=== PATIENT | female | born 1960 | race Two or more races ===

== ENCOUNTER 2017-02-23 11:32 | Emergency (ER) | payer MEDICAID ==
[~2017-02-23] VITALS: Ht 160 cm; Wt 68.0 kg
[~2017-02-23 11:32] MED LIST: ALBUPOW26 XX; DICL-37 OR; DIVA500T53; LISI-646 OR; QUET200T30 OR
[2017-02-23 12:08] VITALS: BP 147/101
[2017-02-23] MEDS ORDERED: MECLIZINE HCL 25 MG TAB PO ONE (13:00)
[2017-02-23 14:21] LABS: Basophils # (auto) 0.1 uL; Basophils % (auto) 0.4 % (0.0-2.0); Eosinophils # (auto) 0.2 uL; Eosinophils % (auto) 1.4 % (0.0-7.0); Hematocrit 42.2 % (36.0-46.0); Hemoglobin 14.1 g/dL (12.2-16.2); Lymphocytes # (auto) 1.5 uL; Lymphocytes % (auto) 10.2 % (10.0-50.0); Mean Corpuscular Hemoglobin 30.9 pg (28.0-32.0); Mean Corpuscular Hgb Conc. 33.5 g/dL (32.0-36.0); Mean Corpuscular Volume 92.1 fL (80.0-100.0); Mean Platelet Volume 7.8 fL (6.9-10.8); Monocytes # (auto) 0.6 uL; Monocytes % (auto) 3.8 % (0.0-12.0); Neutrophils # (auto) 12.2 uL; Neutrophils % (auto) 84.2 % (37.0-80.0); Platelet Count (auto) 283 10^3/uL (140-450); Red Cell Distribution Width 13.4 % (11.8-14.3); White Blood Cell 14.5 10^3/uL (4.4-10.8)
[2017-02-23 14:40] LABS: Alkaline Phosphatase 92 U/L (45-117); Anion Gap 6 (5-15); Aspartate Aminotransferase 13 U/L (15-37); BUN/Creatinine Ratio 23.8; Bilirubin, Total 0.2 mg/dL (0.2-1.0); Blood Urea Nitrogen 15 mg/dL (7-18); Calcium 8.9 mg/dL (8.5-10.1); Carbon Dioxide 25 mmol/L (21-32); Chloride 109 mmol/L (98-107); GFR African American 125 mL/min; GFR Non-African American 104 mL/min; Glucose 114 mg/dL (74-106); Magnesium 2.5 mg/dL (1.6-2.6); Potassium 4.6 mmol/L (3.5-5.1); Sodium 140 mmol/L (136-145); Total Protein 7.8 g/dL (6.4-8.2)
== END 2017-02-23 14:59 | disposition left against medical advice (07) ==
LOC: EDSEX 11:32 → EDBD 11:32 → ER 11:32
DX: R42 Dizziness and giddiness (principal); I10 Essential (primary) hypertension; J45.909 Unspecified asthma, uncomplicated; M19.90 Unspecified osteoarthritis, unspecified site; F17.210 Nicotine dependence, cigarettes, uncomplicated; F12.10 Cannabis abuse, uncomplicated; Z98.51 Tubal ligation status; Z90.49 Acquired absence of other specified parts of digestive tract
CPT/HCPCS: 36415; 71010; 80053; 83735; 84484; 85025; 93005; 94761

== ENCOUNTER 2017-10-15 17:07 | Emergency (ER) | payer MEDICAID ==
[~2017-10-15] VITALS: Ht 160 cm; Wt 74.8 kg
[2017-10-15] MEDS ORDERED: IPRATROPIUM BROM 0.5 MG/2.5ML INH SOL NEB ONE (17:30)
[2017-10-15] MEDS ORDERED: ALBUTEROL SULF 2.5 MG/0.5ML(0.5%) NEB SOLN NEB ONE (17:30)
[2017-10-15] MEDS ORDERED: methylPREDNISolone SOD SUCC 125 MG/2 ML VL IM ONE (17:45)
[2017-10-15 18:53] VITALS: BP 172/117
== END 2017-10-15 19:58 | disposition home or self-care (01) ==
LOC: ER 17:19
DX: J45.901 Unspecified asthma with (acute) exacerbation (principal); I10 Essential (primary) hypertension; F31.9 Bipolar disorder, unspecified; M19.90 Unspecified osteoarthritis, unspecified site; F41.9 Anxiety disorder, unspecified; F20.9 Schizophrenia, unspecified; Z90.49 Acquired absence of other specified parts of digestive tract; Z98.51 Tubal ligation status
CPT/HCPCS: 71046; 94640; 96372; 99284; J2930

== ENCOUNTER 2018-07-06 12:12 | Emergency (ER) | payer MEDICAID ==
[~2018-07-06] VITALS: Ht 160 cm; Wt 68.0 kg
[2018-07-06 13:07] LABS: Amphetamine Screen, Urine NEGATIVE (NEGATIVE); Barbiturate Scree,Urine NEGATIVE (NEGATIVE); Benzodiazephine Screen, Urine NEGATIVE (NEGATIVE); Cannabinoid Screen, Urine POSITIVE (NEGATIVE)
[2018-07-06 13:16] LABS: Alcohol, Urine < 3.0 mg/dL (0-5); Cocaine Screen, Urine NEGATIVE (NEGATIVE); Opiate Scree,Urine NEGATIVE (NEGATIVE); Phencyclidine Screen, Urine NEGATIVE (NEGATIVE)
[2018-07-06 14:25] LABS: Basophils # (auto) 0.1 uL; Basophils % (auto) 0.9 % (0.0-2.0); Eosinophils # (auto) 0.3 uL; Eosinophils % (auto) 4.3 % (0.0-7.0); Hematocrit 37.8 % (36.0-46.0); Lymphocytes # (auto) 2.4 uL; Lymphocytes % (auto) 32.8 % (10.0-50.0); Mean Corpuscular Hemoglobin 30.3 pg (28.0-32.0); Mean Corpuscular Hgb Conc. 34.5 g/dL (32.0-36.0); Mean Corpuscular Volume 87.9 fL (80.0-100.0); Monocytes # (auto) 0.5 uL; Monocytes % (auto) 6.3 % (0.0-12.0); Neutrophils # (auto) 4.1 uL; Neutrophils % (auto) 55.7 % (37.0-80.0); Nucleated Red Blood Cells % 0.3 %; Platelet Count (auto) 279 10^3/uL (140-450); Red Cell Distribution Width 13.8 % (11.8-14.3); White Blood Cell 7.4 10^3/uL (4.4-10.8)
[2018-07-06 14:43] LABS: Alanine Aminotransferase 16 U/L (13-56); Albumin 3.8 g/dL (3.4-5.0); Anion Gap 7 (5-15); Aspartate Aminotransferase 11 U/L (15-37); BUN/Creatinine Ratio 32.4; Blood Urea Nitrogen 24 mg/dL (7-18); Calcium 8.9 mg/dL (8.5-10.1); Carbon Dioxide 27 mmol/L (21-32); Chloride 110 mmol/L (98-107); GFR African American 103 mL/min; GFR Non-African American 85 mL/min; Glucose 100 mg/dL (74-106); Potassium 3.2 mmol/L (3.5-5.1); Sodium 144 mmol/L (136-145)
[2018-07-06 14:48] LABS: Alkaline Phosphatase 111 U/L (45-117); Bilirubin, Total 0.3 mg/dL (0.2-1.0); Total Protein 6.6 g/dL (6.4-8.2)
[2018-07-06 15:20] VITALS: BP 142/80
== END 2018-07-06 15:34 | disposition home or self-care (01) ==
LOC: ER 12:12
DX: R20.0 Anesthesia of skin (principal); M19.90 Unspecified osteoarthritis, unspecified site; J44.9 Chronic obstructive pulmonary disease, unspecified; I10 Essential (primary) hypertension; F17.210 Nicotine dependence, cigarettes, uncomplicated; F12.90 Cannabis use, unspecified, uncomplicated; Z79.899 Other long term (current) drug therapy; Z90.49 Acquired absence of other specified parts of digestive tract; Z98.51 Tubal ligation status
CPT/HCPCS: 36415; 70450; 80053; 80307; 84484; 85025; 93005

== ENCOUNTER 2018-12-02 16:06 | Emergency (ER) | payer MEDICAID ==
[~2018-12-02] VITALS: Ht 160 cm; Wt 72.6 kg
[2018-12-02 16:15] VITALS: BP 147/97
[2018-12-02 16:56] LABS: Basophils # (auto) 0.1 uL; Eosinophils # (auto) 0.4 uL; Hemoglobin 10.6 g/dL (12.2-16.2)
[2018-12-02 16:57] LABS: Basophils % (auto) 1.3 % (0.0-2.0); Eosinophils % (auto) 6.1 % (0.0-7.0); Hematocrit 31.7 % (36.0-46.0); Lymphocytes # (auto) 1.3 uL; Lymphocytes % (auto) 21.5 % (10.0-50.0); Mean Corpuscular Hemoglobin 26.5 pg (28.0-32.0); Mean Corpuscular Hgb Conc. 33.6 g/dL (32.0-36.0); Mean Corpuscular Volume 78.9 fL (80.0-100.0); Monocytes # (auto) 0.6 uL; Monocytes % (auto) 9.1 % (0.0-12.0); Neutrophils # (auto) 3.8 uL; Platelet Count (auto) 315 10^3/uL (140-450); Red Blood Cells 4.01 10^6/uL (4.0-5.20); Red Cell Distribution Width 15.7 % (11.8-14.3); White Blood Cell 6.1 10^3/uL (4.4-10.8)
[2018-12-02 17:07] LABS: Albumin 3.7 g/dL (3.4-5.0); Anion Gap 5 (5-15); Blood Urea Nitrogen 13 mg/dL (7-18); Calcium 8.6 mg/dL (8.5-10.1); Carbon Dioxide 23 mmol/L (21-32); Chloride 115 mmol/L (98-107); Glucose 103 mg/dL (74-106); Potassium 3.6 mmol/L (3.5-5.1); Sodium 143 mmol/L (136-145)
[2018-12-02 17:12] LABS: Alanine Aminotransferase 19 U/L (13-56); Alkaline Phosphatase 106 U/L (45-117); Aspartate Aminotransferase 13 U/L (15-37); BUN/Creatinine Ratio 19.7; Bilirubin, Total 0.3 mg/dL (0.2-1.0); GFR African American 118 mL/min; GFR Non-African American 97 mL/min; Total Protein 6.8 g/dL (6.4-8.2)
== END 2018-12-02 23:58 | disposition left against medical advice (07) ==
LOC: ER 16:06
DX: J45.909 Unspecified asthma, uncomplicated (principal); Z53.21 Procedure and treatment not carried out due to patient leaving prior to being seen by health care provider
CPT/HCPCS: 36415; 71046; 80053; 84484; 85025; 87040

== ENCOUNTER 2019-01-30 13:40 | Emergency (ER) | payer MEDICAID ==
[~2019-01-30] VITALS: Ht 160 cm; Wt 75.3 kg
[2019-01-30 14:22] LABS: Eosinophils # (auto) 0.3 uL; Hemoglobin 10.1 g/dL (12.2-16.2)
[2019-01-30 14:24] LABS: Basophils # (auto) 0.1 uL; Basophils % (auto) 0.9 % (0.0-2.0); Eosinophils % (auto) 4.1 % (0.0-7.0); Hematocrit 31.7 % (36.0-46.0); Lymphocytes # (auto) 1.2 uL; Lymphocytes % (auto) 17.8 % (10.0-50.0); Mean Corpuscular Hemoglobin 24.9 pg (28.0-32.0); Mean Corpuscular Hgb Conc. 31.9 g/dL (32.0-36.0); Mean Corpuscular Volume 78.1 fL (80.0-100.0); Monocytes # (auto) 0.5 uL; Monocytes % (auto) 7.7 % (0.0-12.0); Neutrophils # (auto) 4.8 uL; Neutrophils % (auto) 69.5 % (37.0-80.0); Platelet Count (auto) 329 10^3/uL (140-450); Red Blood Cells 4.06 10^6/uL (4.0-5.20); Red Cell Distribution Width 17.1 % (11.8-14.3)
[2019-01-30 15:25] LABS: Alanine Aminotransferase 18 U/L (13-56); Albumin 3.8 g/dL (3.4-5.0); Anion Gap 7 (5-15); Aspartate Aminotransferase 14 U/L (15-37); BUN/Creatinine Ratio 19.4; Blood Urea Nitrogen 14 mg/dL (7-18); Calcium 8.7 mg/dL (8.5-10.1); Carbon Dioxide 27 mmol/L (21-32); Chloride 106 mmol/L (98-107); GFR African American 107 mL/min; GFR Non-African American 88 mL/min; Glucose 89 mg/dL (74-106); Potassium 3.2 mmol/L (3.5-5.1); Sodium 140 mmol/L (136-145)
[2019-01-30 15:28] LABS: Urine WBC None Seen /hpf (0 - 5)
[2019-01-30 15:30] LABS: Alkaline Phosphatase 117 U/L (45-117); Bilirubin, Total 0.3 mg/dL (0.2-1.0); Total Protein 7.3 g/dL (6.4-8.2)
[2019-01-30] MEDS ORDERED: ASPirin 81 mg TAB PO ONE (15:30)
[2019-01-30] MEDS ORDERED: PANTOPRAZOLE 40 MG TAB PO ONE (15:30)
[2019-01-30 15:46] LABS: Magnesium 2.5 mg/dL (1.6-2.6)
[2019-01-30 15:55] LABS: Urine Bacteria NONE SEEN /hpf (None Seen); Urine Blood Negative /uL (Negative); Urine Specific Gravity 1.017 (1.001-1.035)
[2019-01-30 16:05] LABS: INR 0.94 (0.9-1.15); Partial Thromboplastin Time 26.1 sec (23.64-32.05)
[2019-01-30] MEDS ORDERED: IOHEXOL 350 MG/ML 100ML IJ ONE (17:45)
[2019-01-30 19:32] VITALS: BP 126/81
[2019-01-30] MEDS ORDERED: POTASSIUM CHL 20 Meq TABLET PO ONE (20:00)
== END 2019-01-30 20:07 | disposition home or self-care (01) ==
LOC: ER 13:40
DX: K52.9 Noninfective gastroenteritis and colitis, unspecified (principal); R07.89 Other chest pain; K44.9 Diaphragmatic hernia without obstruction or gangrene; D50.9 Iron deficiency anemia, unspecified; J44.9 Chronic obstructive pulmonary disease, unspecified; I10 Essential (primary) hypertension; F17.210 Nicotine dependence, cigarettes, uncomplicated; Z90.49 Acquired absence of other specified parts of digestive tract; Z79.899 Other long term (current) drug therapy
CPT/HCPCS: 36415; 71045; 71275; 74176; 80053; 81001; 82150; 83690; 83735; 83880; 84443; 84484; 85025; 85379; 85610; 85730; 93005; 99284; J7030; Q9967

== ENCOUNTER 2019-06-30 23:47 | Inpatient (IN) | payer MEDICAID ==
[~2019-06-30] VITALS: Ht 162.6 cm; Wt 76.7 kg
[2019-07-01] MEDS ORDERED: HYDROmorphone HCL 2 MG/ML VL IV ONE ×4 (00:15→12:00)
[2019-07-01] MEDS ORDERED: ONDANSETRON HCL 4 MG/2 ML VIAL IV ONE (00:15)
[2019-07-01 01:30] LABS: Basophils # (auto) 0 10 ^3/uL (0-0.2); Hemoglobin 9.8 g/dL (12.2-16.2); Monocytes # (auto) 0.3 10 ^3/uL (0-1.3); Red Blood Cells 4.35 10^6/uL (4.0-5.20)
[2019-07-01 01:31] LABS: Basophils % (auto) 0.5 % (0.0-2.0); Eosinophils # (auto) 0.1 10 ^3/uL (0-0.8); Eosinophils % (auto) 0.6 % (0.0-7.0); Hematocrit 31.5 % (36.0-46.0); Lymphocytes % (auto) 11.3 % (10.0-50.0); Mean Corpuscular Hemoglobin 22.5 pg (28.0-32.0); Mean Corpuscular Hgb Conc. 31.1 g/dL (32.0-36.0); Mean Corpuscular Volume 72.5 fL (80.0-100.0); Monocytes % (auto) 3.7 % (0.0-12.0); Neutrophils # (auto) 7.1 10 ^3/uL (1.6-8.6); Neutrophils % (auto) 83.9 % (37.0-80.0); Platelet Count (auto) 325 10^3/uL (140-450); Red Cell Distribution Width 18.4 % (11.8-14.3); White Blood Cell 8.5 10^3/uL (4.4-10.8)
[2019-07-01 01:43] LABS: INR 0.97 (0.9-1.15); Partial Thromboplastin Time 26.6 sec (23.64-32.05)
[2019-07-01 01:50] LABS: Albumin 3.7 g/dL (3.4-5.0); BUN/Creatinine Ratio 22.1; Calcium 9.1 mg/dL (8.5-10.1)
[2019-07-01 01:53] LABS: Bilirubin, Total 0.2 mg/dL (0.2-1.0); Total Protein 7.2 g/dL (6.4-8.2)
[2019-07-01 02:04] LABS: Potassium 2.7 mmol/L (3.5-5.1)
[2019-07-01] MEDS ORDERED: COCAINE HCL 4% TOP SOL 4ML TOP ONE (02:45)
[2019-07-01] MEDS ORDERED: POTASSIUM CHL 20MEQ/100ML 100 ML IV ONE (03:15)
[2019-07-01] MEDS ORDERED: SODIUM CHLORIDE 0.9% 1,000 ML IV SCH ×2 (06:11→06:45)
[2019-07-01] MEDS ORDERED: MORPHINE SULF INJ 2 MG/ML SYRINGE 1ML IV PRN ×4 (06:15→11:00)
[2019-07-01] MEDS ORDERED: hydrALAZINE HCL 20 MG/ML VL IV PRN (06:15)
[2019-07-01] MEDS ORDERED: ONDANSETRON HCL 4 MG/2 ML VIAL IV PRN ×2 (06:15→12:00)
[2019-07-01] MEDS ORDERED: NITROGLYCERIN 0.4 MG SL TAB SL PRN (06:45)
[2019-07-01] MEDS ORDERED: POTASSIUM CHL 20 Meq TABLET PO PRN (07:30)
--- NOTE | 2019-07-01 07:30 | NUR ---
Respiratory note: Assessed pt for prn medneb tx. HR 68, RR 12, SPO2 98% on 2lpm nasal cannula. Breath sounds clear throughout. Pt denies SOB at this time, laying comfortably in bed, no s/s of respiratory distress noted. Medneb tx not indicated at this time. Pt aware to call for RT if needing a tx.
[2019-07-01 07:40] VITALS: BP 112/72
[2019-07-01 08:49] LABS: Urine Bacteria FEW /hpf (None Seen); Urine Blood Negative /uL (Negative); Urine Hyaline Cast MOD /lpf (0 - 2); Urine Mucus FEW (None Seen); Urine Specific Gravity 1.028 (1.001-1.035); Urine WBC 1 /hpf (0 - 5)
[2019-07-01 08:51] LABS: Basophils # (auto) 0 10 ^3/uL (0-0.2); Eosinophils # (auto) 0.1 10 ^3/uL (0-0.8); Hemoglobin 9.3 g/dL (12.2-16.2); Monocytes # (auto) 0.7 10 ^3/uL (0-1.3)
[2019-07-01 08:54] LABS: Basophils % (auto) 0.5 % (0.0-2.0); Eosinophils % (auto) 1.5 % (0.0-7.0); Hematocrit 29.6 % (36.0-46.0); Lymphocytes # (auto) 1.6 10 ^3/uL (0.4-5.4); Lymphocytes % (auto) 18.4 % (10.0-50.0); Mean Corpuscular Hemoglobin 22.7 pg (28.0-32.0); Mean Corpuscular Hgb Conc. 31.4 g/dL (32.0-36.0); Mean Corpuscular Volume 72.4 fL (80.0-100.0); Monocytes % (auto) 7.8 % (0.0-12.0); Neutrophils # (auto) 6.1 10 ^3/uL (1.6-8.6); Neutrophils % (auto) 71.8 % (37.0-80.0); Platelet Count (auto) 313 10^3/uL (140-450); Red Blood Cells 4.09 10^6/uL (4.0-5.20); Red Cell Distribution Width 18.7 % (11.8-14.3); White Blood Cell 8.5 10^3/uL (4.4-10.8)
[2019-07-01] MEDS: HYDROmorphone HCL 2 MG/ML VL IV PRN ×6 (09:04→21:56)
[2019-07-01 09:12] LABS: Albumin 3.3 g/dL (3.4-5.0); BUN/Creatinine Ratio 26.1; Calcium 8.6 mg/dL (8.5-10.1); Potassium 3.6 mmol/L (3.5-5.1)
[2019-07-01 09:14] LABS: Bilirubin, Total 0.2 mg/dL (0.2-1.0); Total Protein 6.4 g/dL (6.4-8.2)
[2019-07-01] MEDS ORDERED: ceFAZolin 1GM/50ML 50 ML IV ONE (09:51)
[2019-07-01] MEDS ORDERED: PANTOPRAZOLE 40 MG/10 ML VIAL INJ IV SCH (10:00)
[2019-07-01] MEDS ORDERED: GLYCOPYRROLATE 0.2 MG/ML 1ML VIAL IV ONE (10:15)
[2019-07-01] MEDS ORDERED: NEOSTIGMINE 1 MG/ML INJ (10mg/10ML VIAL) IV ONE (10:15)
[2019-07-01] MEDS ORDERED: PHENYLEPHRINE HCL 10 MG/ML VL IV ONE (10:15)
[2019-07-01] MEDS ORDERED: MIDAZOLAM HCL 1MG/1ML-2 ML VIAL ONE (10:22)
[2019-07-01] MEDS ORDERED: SUCCINYLCHOLINE CHLORIDE 20 MG/ML 10ML VIAL IV ONE (10:22)
[2019-07-01] MEDS ORDERED: fentaNYL CITRATE 100 MCG/2 ML VL ONE (10:22)
[2019-07-01] MEDS ORDERED: MEPERIDINE HCL (50 MG/ML) 1 ML VIAL ONE (10:22)
[2019-07-01] MEDS ORDERED: BUPIVACAINE 0.25% INJ 50ML VIAL ONE (10:46)
[2019-07-01] MEDS ORDERED: ETOMIDATE (2MG/ML) 20ML VIAL IV ONE (10:47)
[2019-07-01] MEDS ORDERED: DexAMETHasone SOD PHOS 10MG/1ML VIAL INJ ONE (10:47)
[2019-07-01] MEDS ORDERED: POVIDONE IODINE 10 % TOPICAL OINT 30GM TOP ONE (10:53)
[2019-07-01] MEDS ORDERED: HYDROmorphone HCL 2 MG/ML VL ONE (11:55)
[2019-07-01] MEDS ORDERED: MORPHINE SULFATE 4 MG/ML SYR/VIAL IV PRN (12:00)
[2019-07-01] MEDS ORDERED: ePHEDrine SULFATE 50 MG/ML AMP IV PRN (12:00)
[2019-07-01] MEDS ORDERED: MIDAZOLAM HCL 1MG/1ML-2 ML VIAL IV PRN (12:00)
[2019-07-01] MEDS ORDERED: LABETALOL HCL 5 MG/ML 4ML SYRINGE IV PRN (12:00)
--- NOTE | 2019-07-01 12:50 | NUR ---
Telemetry admit from OR FRANK ADORNO admitted to Telemetry unit after SBAR received. Patient oriented to OMER GOLDBERG RN primary RN, unit, room, bed, and unit policies regarding patient care and visiting hours. Patient now on continuous telemetry monitoring, tele box # 78 and telemetry reading on arrival to unit is SR in 80's. Patient placed on bedside oxygen, weighed by bedscale and encouraged to call if they need something. All questions and concerns addressed, patient verbalized understanding.
[2019-07-01 12:55] VITALS: BP 125/85
--- NOTE | 2019-07-01 15:00 | NUR ---
Pain Patient complains of abdominal pain 10/16. Pain s/p abdominal surgery. Will medicate per MD orders.
[2019-07-01] MEDS: D5W/SOD CHL 0.45%/KCL 20MEQ 1,000 ML IV SCH (15:11)
[2019-07-01 16:58] VITALS: BP 120/80
--- NOTE | 2019-07-01 19:25 | NUR ---
Received report from the Day Shift RN Cher. Initial assessment done.
--- NOTE | 2019-07-01 19:38 | NUR ---
Respiratory note: ASSESSED PT FOR PRN TX PT WAS AWAKE AND ALERT, NO RESP DISTRESS NOTED. HR 98%, RR 18, SPO2 99% ON 2L NC. BS ARE CLEAR, NO INDICATION FOR TX AT THIS TIME. PT KNOWS TO HAVE RT PAGED IF TX IS NEEDED.
--- NOTE | 2019-07-01 20:00 | NUR ---
Received pt. in bed resting, alert, awake, oriented x 4. Pt. @ 2L/NC continuous, breathing regular even and unlabored. Pt. on Tele # 78 @ 100's @ the monitor. Denies chest pain. Pt. has abdominal incision with dressing clean, dry and intact. Pt. is a S/P Exploratory Lap with repair of incarcerated Central Hernia Surgery which was done today by Dr. lA. Pt. medicated for abdominal pain -see Emar for prn Dilaudid. Will medicate pt. if pt. verbalized abdominal pain anytime soon. No verbalization of pain @ this time and is comfortable @ this time. Pt. IV access @ the RAC G # 20 with IVF of D5W 1/2 NS + 20 meq KCL @ 75 ml./hr. continuous. Generally skin is intact except for the presence of abdominal incision. Kept pt. on NPO. Siderails up x 2 @ the head of the bed, bed locked in a low position and call-light within pt.'s reach.
--- NOTE | 2019-07-01 21:56 | NUR ---
Pt. verbalized severe pain @ the surgical site - abdomen about 9/10 scale, hurting and sharp pain as described by the pt. Pt. given Dilaudid 0.25 mg. IVP @ 2156 pm. Provided pt. psychological support. Pt. still on NPO. ST @ the monitor.
[2019-07-01 22:00] VITALS: BP 141/83
--- NOTE | 2019-07-01 22:26 | NUR ---
Pt. fell asleep, calm and quiet. Pt. is pain free @ this time. SR @ the 80's to 90's @ the monitor. Still with 02 @ 2L/NC continuous.
--- NOTE | 2019-07-02 00:30 | NUR ---
Pt. is sleeping and resting quietly.
--- NOTE | 2019-07-02 00:50 | NUR ---
Called RT as pt. requested to help her loosen and mucolysis her phlegm inside and to open lung tubes.
[2019-07-02] MEDS: ALBUTEROL SULF 2.5 MG/0.5ML(0.5%) NEB SOLN NEB PRN ×2 (00:54→15:55)
--- NOTE | 2019-07-02 00:54 | NUR ---
Pt. received Ventolin/Albuterol Inhalation given by the RT Personnel @ the bedside.
[2019-07-02] MEDS: HYDROmorphone HCL 2 MG/ML VL IV PRN ×5 (02:04→20:01)
[2019-07-02] MEDS: ONDANSETRON HCL 4 MG/2 ML VIAL IV PRN ×2 (02:04→20:01)
--- NOTE | 2019-07-02 02:04 | NUR ---
Pt. given Dilaudid 0.25 mg. IV for severe pain @ the abdomen about 10/10 scale, hurting and sharp pain and Zofran 4mg. IV for nausea both given @ 0204 Am.
[2019-07-02] MEDS: D5W/SOD CHL 0.45%/KCL 20MEQ 1,000 ML IV SCH ×3 (02:05→19:50)
--- NOTE | 2019-07-02 02:34 | NUR ---
Pt. denies pain @ this time, pt. expressed that she's pain free @ this time about 0/10 scale.
[2019-07-02 04:55] VITALS: BP 149/78
--- NOTE | 2019-07-02 04:56 | NUR ---
Texted/Sent message to Dr. Valeriano Lomas about pt. present status. Notified Dr. Valeirano kaiser that pt. is having temp. of 102.2 deg. F. @ this time. Pt. needs order for the high temp. Pt. started or given cooling measures while waiting for Doctor Lomas to return call. Awaiting call.
--- NOTE | 2019-07-02 05:00 | NUR ---
Paged/Called Dr. Valeriano Lomas and left message @ the voice mail about pt. present status with a high temp. of 102.2 degrees F. @ this time. Cooling measures started by ns. staff. Awaiting Doctor's return call.
--- NOTE | 2019-07-02 05:45 | NUR ---
Called/paged Dr. Al. awaiting return call.
--- NOTE | 2019-07-02 05:50 | NUR ---
Dr. Al returned call and notified about pt.'s temp. = 102.2 now and pt. did not receive any antibiotic after surgery yesterday morning. Doctor Servando said there's no need for Blood culture order. Dr. Al gave order for Ancef antibiotic and Tylenol 650 mg. po q 6 hrs. prn for fever.
[2019-07-02] MEDS ORDERED: ACETAMINOPHEN 325 MG TAB PO PRN (06:00)
--- NOTE | 2019-07-02 06:25 | NUR ---
Pt. given Dilaudid 0.25 mg. IVP for severe pain @ the surgical site - Abdominal Surgery incision sharp and hurting pain about 8/10 scale. - See Emar.
--- NOTE | 2019-07-02 06:55 | NUR ---
Pt. verbalized that pain is just little now about 2/10 scale s/p 30 mins. pain reliever Dilaudid IV given. Pt. verb. she's more comfortable now than 30 mins. ago.
[2019-07-02] MEDS: ceFAZolin 1GM/50ML 50 ML IV SCH ×3 (06:56→20:00)
--- NOTE | 2019-07-02 06:56 | NUR ---
Ancef 1 GM given IV for antibiotic. See Emar.
--- NOTE | 2019-07-02 07:15 | NUR ---
Opening shift note Assumed care, patient AOx4 no s/s of distress or SOB noted at this moment. Patient denies pain at this time. Patient updated on POC and to call for assistance as needed, patient verbalizes understanding. Bed in low position, locked, side rails x2 up, call light within reach. Will continue care.
[2019-07-02 09:00] VITALS: BP 109/81
--- NOTE | 2019-07-02 11:00 | NUR ---
Respiratory note: PATIENT ASSESSED FOR PRN MED-NEB TX; TX NOT INDICATED AT THIS TIME PATIENT IS IN NO ACUTE RESPIRATORY DISTRESS AND DENIES NEED. PATIENT INSTRUCTED TO CALL FOR RT IF SHE FEELS THE NEED FOR TX AT A LATER TIME. SPO2 96% 2LPM N/C
--- NOTE | 2019-07-02 12:30 | NUR ---
paged Dr. Lomas paged patient requesting diet change from NPO to Clear Liquid. Awaiting call back.
[2019-07-02 12:35] VITALS: BP 141/78
--- NOTE | 2019-07-02 13:00 | NUR ---
Fever Patient running a mild fever of 100.5, cooling measures initiated, patient refuses antiemetic per MD orders, patient states it makes her stomach upset when taking without food. Will continue to monitor.
--- NOTE | 2019-07-02 14:31 | NUR ---
Re; Fever Patient temperature 102.3 F, cooling measures in place. Patient requesting Tylenol. Will medicate and notify MD of temperature changes.
--- NOTE | 2019-07-02 14:51 | NUR ---
page back Dr. Lomas paged back regarding patient requesting diet change, per MD this RN is to page surgeon and request diet change from him. [phone]- Dr Al paged. Awaiting call back.
--- NOTE | 2019-07-02 15:00 | NUR ---
paged back Dr. Al paged back regarding diet. Per MD patient to remain NPO until first bowel movement. Patient has been informed.
--- NOTE | 2019-07-02 15:32 | NUR ---
RE: fever Patient temperature 100.1 Fahrenheit , cooling measures in place. Will continue to monitor.
--- NOTE | 2019-07-02 15:49 | NUR ---
Pain Patient complaining of abdominal pain. Patient s/p abdominal surgery. Patient states pain is constant, sharp, and stabbing at moments, pain rated 9/10. Will medicate per doctors orders.
--- NOTE | 2019-07-02 16:19 | NUR ---
RE: pain patient pain reassessed at 09/15. Patient adjusted in bed for comfort. Ice packs placed in abdominal region to assist with alleviating pain. Will continue to monitor.
[2019-07-02 17:00] VITALS: BP 108/55
--- NOTE | 2019-07-02 17:00 | NUR ---
Anxiety Patient found crying in bed, patient states she is having a hard time with her anxiety. Patient verbalizes that she occasionally gets " really bad anxiety when she is stressed". Per patient she takes anxiety PRN medication at home but is unable to recall name of medication. MD has been paged regarding patient requesting anxiety medication. Awaiting call back.
--- NOTE | 2019-07-02 17:30 | NUR ---
MD page back regarding anxiety New orders received from Dr. Lomas for Ativan 0.5 mg Q12Hr PRN. Patient refusing medication at the moment, patient states anxiety attack has passed and she will request as needed.
--- NOTE | 2019-07-02 19:00 | NUR ---
OPENING NOTE ASSESSMENT PERFORMED, PATIENT IN BED, ABDOMINAL BINDER IN PLACE, DRESSING ON MID ABDOMEN CLEAN AND DRY. PATIENT WAS ABLE TO SIT UP, DANGLE HER FEET AND USE THE BED SIDE COMMODE, SHE WAS INDEPENDENT. PATIENT WAS VERY UNCOMFORTABLE, IN PAIN AND VOMITING. HER MOUTH IS VERY DRY.
--- NOTE | 2019-07-02 20:23 | NUR ---
MEDICATED FOR NAUSEA, PAIN AND GIVEN MOUTH WASH TO ALLEVIATE HALITOSIS AND AND FEELING OF DRY MOUTH.
[2019-07-02 22:19] VITALS: BP 117/95
[2019-07-03] MEDS: HYDROmorphone HCL 2 MG/ML VL IV PRN ×4 (01:05→22:54)
[2019-07-03] MEDS: ONDANSETRON HCL 4 MG/2 ML VIAL IV PRN ×2 (01:05→19:14)
--- NOTE | 2019-07-03 01:55 | NUR ---
Patient was up to the bedside commode. medicated for nausea and pain.
[2019-07-03 05:00] VITALS: BP 140/84
[2019-07-03] MEDS: ceFAZolin 1GM/50ML 50 ML IV SCH ×3 (05:02→19:13)
[2019-07-03] MEDS: ALBUTEROL SULF 2.5 MG/0.5ML(0.5%) NEB SOLN NEB PRN ×3 (06:59→18:43)
--- NOTE | 2019-07-03 06:59 | NUR ---
Respiratory note: ARRIVED IN PT ROOM FOR A PRN MED NEB CHECK. PT STATES SHE WOULD LIKE A TX BUT IS SITTING ON THE COMMODE AND WANTS ME TO COME BACK AFTER SHE IS DONE. I INSTRUCTED PT TO HIT THE CALL BUTTON WHEN SHE IS DONE.
--- NOTE | 2019-07-03 06:59 | NUR ---
PATIENT SITTING UP. UNLABORED BREATHING. WALKING INDEPENDENTLY. WILL CONTINUE TO MONITOR
[2019-07-03 09:00] VITALS: BP 153/95
[2019-07-03 13:00] VITALS: BP 124/69
--- NOTE | 2019-07-03 13:11 | NUR ---
Diet change Dr. Lomas informed patient had a bowel movement. New orders to upgrade diet to Clear Liquid obtained. Will implement order and monitor patient for diet tolerance.
[2019-07-03] MEDS: LORazepam 2MG/ML-1ML VIAL IV PRN ×2 (13:24→22:54)
[2019-07-03] MEDS: D5W/SOD CHL 0.45%/KCL 20MEQ 1,000 ML IV SCH (15:19)
[2019-07-03 17:00] VITALS: BP 119/76
--- NOTE | 2019-07-03 18:43 | NUR ---
Respiratory note: AT BEDSIDE IN (A) BED PT CALLED ME TO HER BED REQUESTING MED NEB TX. PT STATES SHE IS WHEEZY. BS ARE FINE WHEEZE MORE SO HEARD ON MA[place], DIMINISHED T/O. NO ADVERSE REACTION NOTED WILL ADMINISTRATION OF MED NEB TX. RT NAME AND PAGER ASSIGNMENT WRITTEN ON PTS ROOM BOARD. WILL CONTINUE TO MONITOR.
--- NOTE | 2019-07-03 19:00 | NUR ---
OPENING NOTE PATIENT AWAKE, REPORT RECEIVED FROM RN. PATIENT HAD A BOWEL MOVEMENT TODAY. DIET WAS ADVANCED TO CLEAR LIQUIDS, PATIENT HAS BEEN TOLERATING IT WELL. PATIENT IS WALKING MORE OFTEN.
--- NOTE | 2019-07-03 19:33 | NUR ---
MEDICATED FOR PAIN AND NAUSEA.
[2019-07-03 22:00] VITALS: BP 109/57
[2019-07-04] VITALS (7 sets, daily range): BP systolic 108–138; BP diastolic 61–80
--- NOTE | 2019-07-04 00:11 | NUR ---
PATIENT RESTING, NO SIGNS OF DISTRESS
--- NOTE | 2019-07-04 00:13 | NUR ---
IV insertion IV access obtained, via clean sterile technique by inserting gauge 20 catheter at right forearm after 1 attempt(s). IV secured properly. No trauma to site. Patient tolerated procedure well. IV removal IV DC'd with sterile technique, catheter fully intact. Pressure dressing applied to left a/c. Patient tolerated procedure well. Discharged with aftercare instructions per
--- NOTE | 2019-07-04 01:46 | NUR ---
PATIENT WOKE UP VERY ANGRY, ASKING IF SHE COULD LEAVE THE HOSPITAL BECAUSE SHE DID NOT HAVE ANYTHING TO SLEEP. PATIENT CALLED DAUGHTER AND SAID " THEY SAID I COULD LEAVE. I EXPLAINED TO THE DAUGHTER THAT THE PATIENT WAS TRYING TO LEAVE AMA. PATIENT WAS MEDICATED FOR PAIN. PATIENT NOW IS RESTING.
[2019-07-04] MEDS: D5W/SOD CHL 0.45%/KCL 20MEQ 1,000 ML IV SCH ×3 (05:37→21:05)
[2019-07-04] MEDS: ceFAZolin 1GM/50ML 50 ML IV SCH ×3 (05:37→21:05)
--- NOTE | 2019-07-04 07:22 | NUR ---
Opening Shift Note Assumed care of patient, awake and alert. No S/S of distress/SOB. Instructed on POC and to call for assist PRN, will continue to monitor for changes Q1hr and PRN. Bed is set in lowest locked position with side rails up x 2 for safety and call light is within reach.
[2019-07-04] MEDS: HYDROmorphone HCL 2 MG/ML VL IV PRN ×3 (08:44→19:11)
--- NOTE | 2019-07-04 11:05 | NUR ---
Respiratory note: PT ASSESSED FOR PRN MEDNEB TX AT THIS TIME. NO DISTRESS NOTED. MEDNEB NOT INDICATED AT THIS TIME. SPO2 97% ON 2L NC HR 88 RR 16 B/S CLEAR-DIMINISHED. PT AWARE TO HAVE RT PAGED IF THEY BECOME SOB.
[2019-07-04] MEDS: ALBUTEROL SULF 2.5 MG/0.5ML(0.5%) NEB SOLN NEB PRN (18:25)
--- NOTE | 2019-07-04 19:00 | NUR ---
OPENING NOTE ASSUMED CARE, PATIENT AWAKE, ALERT AND ORIENTED. NO SIGNS OF DISTRESS. INSTRUCTED PATIENT ON POC, AND TO CALL FOR HELP NEEDED. CALL LIGHT WITH IN REACH, BED ON LOWEST POSITION. WILL CONTINUE TO MONITOR.
--- NOTE | 2019-07-04 21:00 | NUR ---
MEDICATED PATIENT FOR ANXIETY, EXPLAINED TO PATIENT MEDICATION SCHEDULE.
[2019-07-04] MEDS: LORazepam 2MG/ML-1ML VIAL IV PRN (21:05)
[2019-07-05] MEDS: ALBUTEROL SULF 2.5 MG/0.5ML(0.5%) NEB SOLN NEB PRN (00:17)
[2019-07-05] MEDS: HYDROmorphone HCL 2 MG/ML VL IV PRN ×2 (01:23→10:07)
[2019-07-05 05:00] VITALS: BP 114/72
[2019-07-05] MEDS: ceFAZolin 1GM/50ML 50 ML IV SCH (05:30)
[2019-07-05 08:52] VITALS: BP 132/18
--- NOTE | 2019-07-05 10:20 | NUR ---
Left message with for surgical clearance.
--- NOTE | 2019-07-05 10:25 | NUR ---
Dr. Viera called back and cleared for discharge. Stated to remove the dressing, the patient may shower and to have patient follow up with him in two weeks.
[2019-07-05 12:58] VITALS: BP 125/72
--- NOTE | 2019-07-05 13:15 | NUR ---
Discharge instructions given as ordered. Encourage to follow up with Primary provider as instructed along with Dr. Viera to remove the kaitlynn and stitches. All questions and concerns addressed. Patient verbalized understanding. Medication reconciliation form completed and copy given to patient. IV removed with catheter intact, pressure dressing applied. Telemetry unit returned to ICU. Patient taken to vehicle via wheelchair with all personal belongings, accompanied by staff and son. No distress noted at time of departure.
== END 2019-07-05 13:14 | disposition home or self-care (01) | DRG 227 ==
LOC: EDBD 23:47 → ER 23:49 → TELE 23:50 → TELE-WESTW 07-01 12:53
PROVIDERS: ADMIT Internal Medicine; ATTEND Internal Medicine
PROC: 0DBU0ZZ Excision of Omentum, Open Approach (ICD-10-PCS; 2019-07-01)
PROC: 0WQF0ZZ Repair Abdominal Wall, Open Approach (ICD-10-PCS; principal; 2019-07-01 10:15)
DX: K43.6 Other and unspecified ventral hernia with obstruction, without gangrene (principal); D64.9 Anemia, unspecified; K57.90 Diverticulosis of intestine, part unspecified, without perforation or abscess without bleeding; F41.9 Anxiety disorder, unspecified; I10 Essential (primary) hypertension; F17.210 Nicotine dependence, cigarettes, uncomplicated; J44.9 Chronic obstructive pulmonary disease, unspecified; Z80.6 Family history of leukemia; Z79.899 Other long term (current) drug therapy; Z79.51 Long term (current) use of inhaled steroids; Z90.49 Acquired absence of other specified parts of digestive tract; Z98.51 Tubal ligation status; Z83.3 Family history of diabetes mellitus; Z82.49 Family history of ischemic heart disease and other diseases of the circulatory system
CPT/HCPCS: 36415; 71045; 74176; 80053; 81001; 82150; 83690; 85025; 85610; 85730; 88302; 94640; 96374; 96375; 96376; G0378; J0330; J0690; J1100; J2250; J2405; J3480; J3490

== ENCOUNTER 2020-07-26 12:47 | Inpatient (IN) | payer MEDICAID ==
[~2020-07-26] VITALS: Ht 160 cm; Wt 81.8 kg
[~2020-07-26 12:47] MED LIST changes: +DIVA500T2; -DIVA500T53; -LISI-646 OR; +LISI20TA28 OR
[2020-07-26] MEDS ORDERED: IPRATROPIUM BROM 0.5 MG/2.5ML INH SOL HHN ONE (13:00)
[2020-07-26] MEDS ORDERED: ALBUTEROL SULF 2.5 MG/0.5ML(0.5%) NEB SOLN HHN ONE (13:00)
[2020-07-26] MEDS ORDERED: methylPREDNISolone SOD SUCC 125 MG/2 ML VL IV ONE (13:00)
[2020-07-26 13:40] LABS: Basophils # (auto) 0.1 10 ^3/uL (0-0.2); Hemoglobin 10.3 g/dL (12.2-16.2); Neutrophils # (auto) 6.4 10 ^3/uL (1.6-8.6)
[2020-07-26 13:41] LABS: Basophils % (auto) 1.2 % (0.0-2.0); Eosinophils # (auto) 1.4 10 ^3/uL (0-0.8); Eosinophils % (auto) 13.2 % (0.0-7.0); Hematocrit 32.1 % (36.0-46.0); Lymphocytes # (auto) 1.9 10 ^3/uL (0.4-5.4); Lymphocytes % (auto) 18.1 % (10.0-50.0); Mean Corpuscular Hemoglobin 23.3 pg (28.0-32.0); Mean Corpuscular Hgb Conc. 32.1 g/dL (32.0-36.0); Mean Corpuscular Volume 72.4 fL (80.0-100.0); Monocytes # (auto) 0.6 10 ^3/uL (0-1.3); Neutrophils % (auto) 61.5 % (37.0-80.0); Platelet Count (auto) 391 10^3/uL (140-450); Red Blood Cells 4.44 10^6/uL (4.0-5.20); Red Cell Distribution Width 17.9 % (11.8-14.3); White Blood Cell 10.5 10^3/uL (4.4-10.8)
[2020-07-26 14:09] LABS: Chloride 115 mmol/L (98-107); Potassium 3.9 mmol/L (3.5-5.1); Sodium 143 mmol/L (136-145)
[2020-07-26 14:18] LABS: Alanine Aminotransferase 20 U/L (13-56); Albumin 4.2 g/dL (3.4-5.0); Alkaline Phosphatase 139 U/L (45-117); Anion Gap 9 (5-15); Aspartate Aminotransferase 13 U/L (15-37); BUN/Creatinine Ratio 21.3; Bilirubin, Total 0.4 mg/dL (0.2-1.0); Blood Urea Nitrogen 16 mg/dL (7-18); CRP High Sensitivity 0.42 mg/dL (< 0.3); Carbon Dioxide 19 mmol/L (21-32); GFR African American 101 mL/min; GFR Non-African American 83 mL/min; Glucose 103 mg/dL (74-106); Total Protein 7.6 g/dL (6.4-8.2)
[2020-07-26] MEDS ORDERED: ACETAMINOPHEN 325 MG TAB PO PRN (15:00)
[2020-07-26] MEDS ORDERED: NITROGLYCERIN 0.4 MG SL TAB SL PRN (15:00)
[2020-07-26] MEDS ORDERED: MORPHINE SULF INJ 2 MG/ML SYRINGE 1ML IV PRN (15:00)
[2020-07-26] MEDS: levoFLOXacin 500MG 100 ML IV SCH (15:18)
[2020-07-26] MEDS: MORPHINE SULFATE 4 MG/ML SYR/VIAL IV PRN ×2 (17:20→21:40)
[2020-07-26 19:45] VITALS: BP 167/86
[2020-07-26] MEDS ORDERED: LISI-287 PO (20:33)
[2020-07-26] MEDS ORDERED: MAGN241.6 PO (20:33)
[2020-07-26] MEDS ORDERED: PANT40TA57 PO (20:33)
[2020-07-26] MEDS ORDERED: BACL10TA PO (20:33)
[2020-07-26] MEDS ORDERED: ALBU108A5 INH (20:33)
[2020-07-26] MEDS ORDERED: NAP500T PO (20:33)
[2020-07-26] MEDS ORDERED: CLON1TAB10 PO (20:33)
[2020-07-26] MEDS ORDERED: LISI-707 PO (20:38)
[2020-07-26] MEDS ORDERED: BACLOFEN 10 MG TAB PO PRN (20:45)
[2020-07-26] MEDS: methylPREDNISolone SOD SUCC 40 MG/ML VL IV SCH (21:39)
[2020-07-26] MEDS: clonazePAM 0.5 MG TAB PO PRN (21:40)
[2020-07-26 22:00] VITALS: BP 167/86
[2020-07-27] VITALS (7 sets, daily range): BP systolic 119–170; BP diastolic 74–89
[2020-07-27] MEDS: TEMAZEPAM 15 MG CAP PO PRN (00:21)
[2020-07-27] MEDS: MORPHINE SULFATE 4 MG/ML SYR/VIAL IV PRN ×2 (04:31→20:17)
[2020-07-27] MEDS: methylPREDNISolone SOD SUCC 40 MG/ML VL IV SCH ×3 (06:12→22:03)
[2020-07-27 06:49] LABS: Basophils # (auto) 0 10 ^3/uL (0-0.2); Eosinophils # (auto) 0 10 ^3/uL (0-0.8); Eosinophils % (auto) 0.1 % (0.0-7.0); Lymphocytes # (auto) 0.9 10 ^3/uL (0.4-5.4); Lymphocytes % (auto) 7.3 % (10.0-50.0); Mean Corpuscular Hemoglobin 23.3 pg (28.0-32.0); Mean Corpuscular Hgb Conc. 30.6 g/dL (32.0-36.0); Monocytes # (auto) 0.2 10 ^3/uL (0-1.3); Neutrophils % (auto) 90.8 % (37.0-80.0)
[2020-07-27 06:52] LABS: Basophils % (auto) 0.3 % (0.0-2.0); Hematocrit 30.4 % (36.0-46.0); Hemoglobin 9.3 g/dL (12.2-16.2); Mean Corpuscular Volume 75.9 fL (80.0-100.0); Monocytes % (auto) 1.5 % (0.0-12.0); Neutrophils # (auto) 11.3 10 ^3/uL (1.6-8.6); Platelet Count (auto) 297 10^3/uL (140-450); Red Cell Distribution Width 17.5 % (11.8-14.3); White Blood Cell 12.5 10^3/uL (4.4-10.8)
[2020-07-27 07:04] LABS: Albumin 3.5 g/dL (3.4-5.0)
[2020-07-27 07:07] LABS: BUN/Creatinine Ratio 28.3; Bilirubin, Total 0.4 mg/dL (0.2-1.0); Total Protein 7.1 g/dL (6.4-8.2)
[2020-07-27 07:12] LABS: Potassium 4.7 mmol/L (3.5-5.1)
[2020-07-27] MEDS: HCTZ 25 MG TAB PO SCH (09:23)
[2020-07-27] MEDS: LISINOPRIL 20 MG TAB PO SCH (09:24)
[2020-07-27] MEDS: levoFLOXacin 500MG 100 ML IV SCH (09:25)
[2020-07-27] MEDS: ENOXAPARIN SOD 40 MG/0.4 ML SYRINGE SC SCH (09:25)
[2020-07-27] MEDS: HYDROcodone-ACET 5/325MG TAB PO PRN ×2 (09:39→13:47)
[2020-07-27] MEDS ORDERED: HYDROCHLOROTHIAZIDE PO SCH (10:00)
[2020-07-27] MEDS ORDERED: LISINOPRIL PO SCH (10:00)
[2020-07-27] MEDS ORDERED: ALBUTEROL SULF 2.5 MG/0.5ML(0.5%) NEB SOLN NEB PRN (11:30)
[2020-07-27] MEDS: clonazePAM 0.5 MG TAB PO PRN (16:58)
[2020-07-27] MEDS: IPRATROPIUM BROM 0.5 MG/2.5ML INH SOL NEB SCH (18:14)
[2020-07-27] MEDS: ALBUTEROL SULF 2.5 MG/0.5ML(0.5%) NEB SOLN NEB SCH (18:14)
[2020-07-28] MEDS: TEMAZEPAM 15 MG CAP PO PRN ×2 (00:33→21:56)
[2020-07-28] MEDS: ALBUTEROL SULF 2.5 MG/0.5ML(0.5%) NEB SOLN NEB SCH ×5 (00:37→23:49)
[2020-07-28] MEDS: IPRATROPIUM BROM 0.5 MG/2.5ML INH SOL NEB SCH ×5 (00:37→23:49)
[2020-07-28] MEDS: MORPHINE SULFATE 4 MG/ML SYR/VIAL IV PRN ×4 (04:03→20:53)
[2020-07-28 05:00] VITALS: BP 131/73
[2020-07-28] MEDS: methylPREDNISolone SOD SUCC 40 MG/ML VL IV SCH ×3 (06:10→21:55)
[2020-07-28 08:30] VITALS: BP 123/82
[2020-07-28] MEDS: levoFLOXacin 500MG 100 ML IV SCH (09:55)
[2020-07-28] MEDS: HCTZ 25 MG TAB PO SCH (09:55)
[2020-07-28] MEDS: LISINOPRIL 20 MG TAB PO SCH (09:55)
[2020-07-28] MEDS: ENOXAPARIN SOD 40 MG/0.4 ML SYRINGE SC SCH (09:56)
[2020-07-28 12:56] VITALS: BP 113/76
[2020-07-28 16:34] VITALS: BP 121/68
[2020-07-28] MEDS: clonazePAM 0.5 MG TAB PO PRN (19:49)
[2020-07-28 22:00] VITALS: BP 145/91
[2020-07-29] MEDS: MORPHINE SULFATE 4 MG/ML SYR/VIAL IV PRN ×3 (00:53→11:44)
[2020-07-29 05:00] VITALS: BP 124/72
[2020-07-29] MEDS: methylPREDNISolone SOD SUCC 40 MG/ML VL IV SCH ×2 (05:31→13:52)
[2020-07-29] MEDS: IPRATROPIUM BROM 0.5 MG/2.5ML INH SOL NEB SCH ×2 (06:54→12:36)
[2020-07-29] MEDS: ALBUTEROL SULF 2.5 MG/0.5ML(0.5%) NEB SOLN NEB SCH ×2 (06:54→12:37)
[2020-07-29 09:00] VITALS: BP 107/75
[2020-07-29] MEDS: HCTZ 25 MG TAB PO SCH (09:44)
[2020-07-29] MEDS: levoFLOXacin 500MG 100 ML IV SCH (09:45)
[2020-07-29] MEDS: LISINOPRIL 20 MG TAB PO SCH (09:45)
[2020-07-29] MEDS: clonazePAM 0.5 MG TAB PO PRN (09:46)
[2020-07-29] MEDS: ENOXAPARIN SOD 40 MG/0.4 ML SYRINGE SC SCH (09:50)
[2020-07-29] MEDS ORDERED: MORPHINE SULF INJ 2 MG/ML SYRINGE 1ML IV PRN (12:00)
[2020-07-29 13:00] VITALS: BP 134/83
[2020-07-29 14:12] VITALS: BP 134/83
== END 2020-07-29 15:03 | disposition home or self-care (01) | DRG 141 ==
LOC: ER 12:47 → TELE 14:53 → TELE-EAST 19:32
PROVIDERS: ADMIT Internal Medicine; ATTEND Internal Medicine
DX: J45.901 Unspecified asthma with (acute) exacerbation (principal); J96.01 Acute respiratory failure with hypoxia; D64.9 Anemia, unspecified; Z83.3 Family history of diabetes mellitus; F17.210 Nicotine dependence, cigarettes, uncomplicated; F41.9 Anxiety disorder, unspecified; I10 Essential (primary) hypertension; J44.9 Chronic obstructive pulmonary disease, unspecified; Z20.822 Contact with and (suspected) exposure to COVID-19; Z80.0 Family history of malignant neoplasm of digestive organs; Z80.6 Family history of leukemia; Z85.038 Personal history of other malignant neoplasm of large intestine; Z82.49 Family history of ischemic heart disease and other diseases of the circulatory system
CPT/HCPCS: 36415; 71045; 80053; 82728; 83605; 83880; 84484; 85025; 85379; 86141; 87040; 87426; 93005; 94640; 96365; 96375; G0378; J1956

== ENCOUNTER 2020-09-13 11:14 | Inpatient (IN) | payer MEDICAID ==
[~2020-09-13] VITALS: Ht 160 cm; Wt 81.3 kg
[~2020-09-13 11:14] MED LIST changes: +ALBU108A5 INH; -ALBUPOW26 XX; +BACL10TA PO; +CLON1TAB10 PO; -DICL-37 OR; -DIVA500T2; +LISI-707 PO; -LISI20TA28 OR; +MAGN241.6 PO; +NAP500T PO; +PANT40TA57 PO; -QUET200T30 OR
[2020-09-13] MEDS ORDERED: MORPHINE SULFATE 4 MG/ML SYR/VIAL IV ONE (11:45)
[2020-09-13] MEDS ORDERED: ONDANSETRON HCL 4 MG/2 ML VIAL IV ONE (11:45)
[2020-09-13] MEDS ORDERED: SODIUM CHLORIDE 0.9% 500 ML IVB ONE (11:45)
[2020-09-13 11:55] LABS: Basophils # (auto) 0 10 ^3/uL (0-0.2); Basophils % (auto) 0.3 % (0.0-2.0); Eosinophils # (auto) 0.1 10 ^3/uL (0-0.8); Eosinophils % (auto) 0.7 % (0.0-7.0); Hematocrit 28.1 % (36.0-46.0); Hemoglobin 8.7 g/dL (12.2-16.2); Lymphocytes # (auto) 1.5 10 ^3/uL (0.4-5.4); Mean Corpuscular Hemoglobin 22.5 pg (28.0-32.0); Mean Corpuscular Hgb Conc. 30.8 g/dL (32.0-36.0); Mean Corpuscular Volume 72.8 fL (80.0-100.0); Monocytes # (auto) 0.8 10 ^3/uL (0-1.3); Monocytes % (auto) 5.4 % (0.0-12.0); Neutrophils # (auto) 12.2 10 ^3/uL (1.6-8.6); Neutrophils % (auto) 83.6 % (37.0-80.0); Red Blood Cells 3.85 10^6/uL (4.0-5.20); Red Cell Distribution Width 18.5 % (11.8-14.3); White Blood Cell 14.6 10^3/uL (4.4-10.8)
[2020-09-13 12:28] LABS: Albumin 4.4 g/dL (3.4-5.0); Amylase 58 U/L (25-115); Anion Gap 13 (5-15); Blood Urea Nitrogen 33 mg/dL (7-18); Calcium 9.3 mg/dL (8.5-10.1); Carbon Dioxide 22 mmol/L (21-32); Chloride 106 mmol/L (98-107); Glucose 134 mg/dL (74-106); Lipase 243 U/L (73-393); Potassium 3.4 mmol/L (3.5-5.1); Sodium 141 mmol/L (136-145)
[2020-09-13 12:35] LABS: Alanine Aminotransferase 16 U/L (13-56); Alkaline Phosphatase 107 U/L (45-117); Aspartate Aminotransferase 15 U/L (15-37); BUN/Creatinine Ratio 7.4; GFR African American 13 mL/min; GFR Non-African American 11 mL/min
[2020-09-13] MEDS ORDERED: ACETAMINOPHEN 325 MG TAB PO PRN (14:15)
[2020-09-13] MEDS ORDERED: NITROGLYCERIN 0.4 MG SL TAB SL PRN (14:15)
[2020-09-13] MEDS ORDERED: HYDROcodone-ACET 5/325MG TAB PO PRN (14:15)
[2020-09-13] MEDS ORDERED: SODIUM CHLORIDE 0.9% 1,000 ML IV ONE (14:15)
[2020-09-13] MEDS ORDERED: MORPHINE SULF INJ 2 MG/ML SYRINGE 1ML IV PRN (14:15)
[2020-09-13] MEDS: SODIUM CHLORIDE 0.9% 1,000 ML IV SCH ×2 (15:14→20:55)
[2020-09-13 15:49] LABS: Alcohol, Urine < 3.0 mg/dL (0-10); Amphetamine Screen, Urine NEGATIVE (NEGATIVE); Barbiturate Scree,Urine NEGATIVE (NEGATIVE); Benzodiazephine Screen, Urine NEGATIVE (NEGATIVE); Cannabinoid Screen, Urine POSITIVE (NEGATIVE); Cocaine Screen, Urine NEGATIVE (NEGATIVE); Opiate Scree,Urine POSITIVE (NEGATIVE); Phencyclidine Screen, Urine NEGATIVE (NEGATIVE)
[2020-09-13 15:55] LABS: Urine Bacteria NONE SEEN /hpf (None Seen); Urine Blood Negative /uL (Negative); Urine Hyaline Cast MANY /lpf (0 - 2); Urine Mucus FEW (None Seen); Urine Specific Gravity 1.025 (1.001-1.035); Urine WBC 14 /hpf (0 - 5)
[2020-09-13 18:47] VITALS: BP 96/67
[2020-09-13] MEDS: MORPHINE SULF INJ 2 MG/ML SYRINGE 1ML IV PRN ×2 (20:11→23:31)
[2020-09-13 22:00] VITALS: BP 101/81
[2020-09-13] MEDS ORDERED: FAMOTIDINE 20 MG TAB PO SCH (22:00)
[2020-09-14] MEDS: SODIUM CHLORIDE 0.9% 1,000 ML IV SCH ×3 (04:07→18:01)
[2020-09-14 05:00] VITALS: BP 113/65
[2020-09-14 06:12] LABS: Basophils # (auto) 0 10 ^3/uL (0-0.2); Eosinophils # (auto) 0.2 10 ^3/uL (0-0.8); Hemoglobin 7.3 g/dL (12.2-16.2); Lymphocytes # (auto) 1.8 10 ^3/uL (0.4-5.4); Monocytes # (auto) 0.7 10 ^3/uL (0-1.3); Monocytes % (auto) 9.1 % (0.0-12.0); Nucleated Red Blood Cells % 0.1 %; White Blood Cell 7.6 10^3/uL (4.4-10.8)
[2020-09-14 06:14] LABS: Basophils % (auto) 0.6 % (0.0-2.0); Eosinophils % (auto) 2.6 % (0.0-7.0); Hematocrit 22.8 % (36.0-46.0); Lymphocytes % (auto) 23.5 % (10.0-50.0); Mean Corpuscular Hemoglobin 23.5 pg (28.0-32.0); Mean Corpuscular Hgb Conc. 32.2 g/dL (32.0-36.0); Mean Corpuscular Volume 73.2 fL (80.0-100.0); Neutrophils # (auto) 4.8 10 ^3/uL (1.6-8.6); Neutrophils % (auto) 64.2 % (37.0-80.0); Red Blood Cells 3.11 10^6/uL (4.0-5.20)
[2020-09-14 06:33] LABS: Potassium 4.3 mmol/L (3.5-5.1)
[2020-09-14 06:49] LABS: Albumin 3.2 g/dL (3.4-5.0); BUN/Creatinine Ratio 18.7; Bilirubin, Total 1.1 mg/dL (0.2-1.0); Calcium 8.1 mg/dL (8.5-10.1); Total Protein 6.1 g/dL (6.4-8.2)
[2020-09-14 08:04] VITALS: BP 113/53
[2020-09-14] MEDS: MORPHINE SULF INJ 2 MG/ML SYRINGE 1ML IV PRN ×3 (09:26→21:40)
[2020-09-14 12:02] VITALS: BP 129/73
[2020-09-14] MEDS ORDERED: BACLOFEN 10 MG TAB PO PRN (15:15)
[2020-09-14] MEDS ORDERED: clonazePAM 0.5 MG TAB PO ONE (15:15)
[2020-09-14] MEDS ORDERED: BACLOFEN 10 MG TAB PO ONE (15:15)
[2020-09-14 16:46] VITALS: BP 122/74
[2020-09-14] MEDS: ALBUTEROL SULF 2.5 MG/0.5ML(0.5%) NEB SOLN NEB PRN (19:48)
[2020-09-14 20:40] VITALS: BP 122/74
[2020-09-14 22:00] VITALS: BP 121/74
[2020-09-15] MEDS: SODIUM CHLORIDE 0.9% 1,000 ML IV SCH ×3 (01:30→15:20)
[2020-09-15 05:00] VITALS: BP 130/68
[2020-09-15 09:00] VITALS: BP 138/80
[2020-09-15] MEDS: DOCUSATE SOD 100 MG CAP PO PRN ×2 (09:19→21:14)
[2020-09-15] MEDS: PANTOPRAZOLE 40 MG/10 ML VIAL INJ IV SCH (09:19)
[2020-09-15] MEDS: HCTZ 25 MG TAB PO SCH (09:20)
[2020-09-15] MEDS: MORPHINE SULF INJ 2 MG/ML SYRINGE 1ML IV PRN ×3 (09:20→21:14)
[2020-09-15] MEDS: LISINOPRIL 20 MG TAB PO SCH (09:20)
[2020-09-15 13:00] VITALS: BP 138/77
[2020-09-15 14:40] LABS: Basophils # (auto) 0.1 10 ^3/uL (0-0.2); Eosinophils # (auto) 0.2 10 ^3/uL (0-0.8); Lymphocytes # (auto) 1.7 10 ^3/uL (0.4-5.4); Monocytes # (auto) 0.5 10 ^3/uL (0-1.3); Neutrophils # (auto) 3.9 10 ^3/uL (1.6-8.6); White Blood Cell 6.4 10^3/uL (4.4-10.8)
[2020-09-15 14:45] LABS: Basophils % (auto) 0.9 % (0.0-2.0); Eosinophils % (auto) 3.3 % (0.0-7.0); Hematocrit 23.2 % (36.0-46.0); Hemoglobin 7.5 g/dL (12.2-16.2); Lymphocytes % (auto) 26.3 % (10.0-50.0); Mean Corpuscular Hemoglobin 23.4 pg (28.0-32.0); Mean Corpuscular Hgb Conc. 32.3 g/dL (32.0-36.0); Mean Corpuscular Volume 72.6 fL (80.0-100.0); Monocytes % (auto) 7.9 % (0.0-12.0); Neutrophils % (auto) 61.6 % (37.0-80.0); Red Cell Distribution Width 17.8 % (11.8-14.3)
[2020-09-15 14:56] LABS: BUN/Creatinine Ratio 23.4; Magnesium 2.1 mg/dL (1.6-2.6); Potassium 3.6 mmol/L (3.5-5.1)
[2020-09-15] MEDS: clonazePAM 0.5 MG TAB PO PRN (15:14)
[2020-09-15 16:59] VITALS: BP 139/78
[2020-09-15 22:00] VITALS: BP 140/76
[2020-09-16] MEDS: SODIUM CHLORIDE 0.9% 1,000 ML IV SCH (01:31)
[2020-09-16] MEDS: ALBUTEROL SULF 2.5 MG/0.5ML(0.5%) NEB SOLN NEB PRN (03:04)
[2020-09-16] MEDS: clonazePAM 0.5 MG TAB PO PRN (03:31)
[2020-09-16 05:00] VITALS: BP 138/85
[2020-09-16 06:05] LABS: Eosinophils # (auto) 0.1 10 ^3/uL (0-0.8); Hemoglobin 7.3 g/dL (12.2-16.2); Lymphocytes # (auto) 1.2 10 ^3/uL (0.4-5.4); Monocytes # (auto) 0.5 10 ^3/uL (0-1.3); White Blood Cell 5.8 10^3/uL (4.4-10.8)
[2020-09-16 06:09] LABS: Basophils # (auto) 0.1 10 ^3/uL (0-0.2); Basophils % (auto) 0.9 % (0.0-2.0); Lymphocytes % (auto) 20.1 % (10.0-50.0); Mean Corpuscular Hemoglobin 23.7 pg (28.0-32.0); Mean Corpuscular Hgb Conc. 33.2 g/dL (32.0-36.0); Mean Corpuscular Volume 71.5 fL (80.0-100.0); Monocytes % (auto) 7.9 % (0.0-12.0); Neutrophils % (auto) 69.1 % (37.0-80.0); Red Blood Cells 3.08 10^6/uL (4.0-5.20); Red Cell Distribution Width 17.8 % (11.8-14.3)
[2020-09-16 06:23] LABS: Calcium 8.2 mg/dL (8.5-10.1); Potassium 3.4 mmol/L (3.5-5.1)
[2020-09-16 06:25] LABS: INR 0.97 (0.9-1.15); Partial Thromboplastin Time 24.8 sec (23.0-31.2)
[2020-09-16 06:26] LABS: BUN/Creatinine Ratio 25.5
[2020-09-16 09:00] VITALS: BP 152/110
[2020-09-16] MEDS: PANTOPRAZOLE 40 MG/10 ML VIAL INJ IV SCH (09:21)
[2020-09-16] MEDS: MORPHINE SULF INJ 2 MG/ML SYRINGE 1ML IV PRN (09:21)
[2020-09-16] MEDS ORDERED: SODIUM CHLORIDE LOCK 10 ML ONE (09:46)
[2020-09-16] MEDS ORDERED: LIDOCAINE VISCOUS 2% 15ML UD ONE (09:46)
[2020-09-16] MEDS ORDERED: diphenhdrAMINE HCL 50 MG/1 ML VL ONE (09:47)
[2020-09-16] MEDS ORDERED: SIMETHICONE 40 MG/0.6 ML ORAL DROP ONE (09:47)
[2020-09-16] MEDS ORDERED: FLUMAZENIL 0.1 MG/ML INJ 10ML MDV IV ONE (09:58)
[2020-09-16] MEDS ORDERED: NALOXONE HCL 0.4 MG/ML VIAL ONE (09:58)
[2020-09-16] MEDS: LISINOPRIL 20 MG TAB PO SCH (10:00)
[2020-09-16] MEDS: HCTZ 25 MG TAB PO SCH (10:00)
[2020-09-16] MEDS: fentaNYL CITRATE 100 MCG/2 ML VL ONE ×2 (10:40→10:43)
[2020-09-16] MEDS: MIDAZOLAM HCL 5 MG/ML-1ML VIAL ONE ×4 (10:40→10:50)
[2020-09-16] MEDS ORDERED: SUCRALFATE 1 GM/10 ML ORAL SUSP PO SCH (11:30)
[2020-09-16 12:49] VITALS: BP 127/69
[2020-09-16 13:00] VITALS: BP 158/91
[2020-09-16] MEDS ORDERED: PANTOPRAZOLE 40 MG TAB PO SCH (22:00)
== END 2020-09-16 13:45 | disposition home or self-care (01) | DRG 241 ==
LOC: ER 11:14 → EDBD 11:14 → TELE 14:01 → TELE-WESTW 17:54 → WEST WING 09-15 18:49
PROVIDERS: ADMIT Nurse Practitioner; ATTEND Nurse Practitioner
PROC: 0DB68ZX Excision of Stomach, Via Natural or Artificial Opening Endoscopic, Diagnostic (ICD-10-PCS; 2020-09-16)
PROC: 0DB98ZX Excision of Duodenum, Via Natural or Artificial Opening Endoscopic, Diagnostic (ICD-10-PCS; principal; 2020-09-16 10:38)
DX: K29.90 Gastroduodenitis, unspecified, without bleeding (principal); N17.0 Acute kidney failure with tubular necrosis; I95.9 Hypotension, unspecified; K29.70 Gastritis, unspecified, without bleeding; D64.9 Anemia, unspecified; D72.829 Elevated white blood cell count, unspecified; F17.210 Nicotine dependence, cigarettes, uncomplicated; I10 Essential (primary) hypertension; J44.9 Chronic obstructive pulmonary disease, unspecified; Z20.822 Contact with and (suspected) exposure to COVID-19; F41.9 Anxiety disorder, unspecified; K44.9 Diaphragmatic hernia without obstruction or gangrene; M81.0 Age-related osteoporosis without current pathological fracture; Z80.0 Family history of malignant neoplasm of digestive organs; Z80.6 Family history of leukemia; Z83.3 Family history of diabetes mellitus; Z82.49 Family history of ischemic heart disease and other diseases of the circulatory system; Z85.038 Personal history of other malignant neoplasm of large intestine; Z90.49 Acquired absence of other specified parts of digestive tract; Z98.51 Tubal ligation status
CPT/HCPCS: 36415; 43239; 71045; 74176; 80048; 80053; 80307; 81001; 82150; 83605; 83690; 83735; 84484; 85025; 85049; 85610; 85730; 86850; 86900; 86901; 87040; 87426; 93005; 94640; 96361; 96374; 96375; C9113; G0378; J2250; J2405

== ENCOUNTER 2021-06-10 12:36 | Inpatient (IN) | payer MEDICAID ==
[~2021-06-10] VITALS: Ht 160 cm; Wt 81.0 kg
[~2021-06-10 12:36] MED LIST changes: -BACL10TA PO; +CLON-853 PO; -CLON1TAB10 PO; -NAP500T PO; -PANT40TA57 PO
[2021-06-10 13:26] LABS: Basophils # (auto) 0.1 10 ^3/uL (0-0.2); Eosinophils # (auto) 0.2 10 ^3/uL (0-0.8); Eosinophils % (auto) 3.3 % (0.0-7.0); Hematocrit 37.1 % (36.0-46.0); Hemoglobin 12.9 g/dL (12.2-16.2); Lymphocytes # (auto) 1.8 10 ^3/uL (0.4-5.4); Lymphocytes % (auto) 23.9 % (10.0-50.0); Mean Corpuscular Hemoglobin 31.2 pg (28.0-32.0); Mean Corpuscular Hgb Conc. 34.9 g/dL (32.0-36.0); Mean Corpuscular Volume 89.4 fL (80.0-100.0); Monocytes # (auto) 0.5 10 ^3/uL (0-1.3); Monocytes % (auto) 6.2 % (0.0-12.0); Neutrophils # (auto) 4.9 10 ^3/uL (1.6-8.6); Neutrophils % (auto) 65.6 % (37.0-80.0); Nucleated Red Blood Cells % 0.1 %; Red Blood Cells 4.15 10^6/uL (4.0-5.20); Red Cell Distribution Width 13.9 % (11.8-14.3); White Blood Cell 7.5 10^3/uL (4.4-10.8)
[2021-06-10 13:37] LABS: Urine Bacteria NONE SEEN /hpf (None Seen); Urine Blood Negative /uL (Negative); Urine Specific Gravity 1.026 (1.001-1.035); Urine WBC <1 /hpf (0 - 5)
[2021-06-10 13:38] LABS: Albumin 3.5 g/dL (3.4-5.0); Calcium 8.8 mg/dL (8.5-10.1); Potassium 3.6 mmol/L (3.5-5.1)
[2021-06-10 13:41] LABS: BUN/Creatinine Ratio 31.9; Bilirubin, Total 0.4 mg/dL (0.2-1.0); Total Protein 7.1 g/dL (6.4-8.2)
[2021-06-10] MEDS ORDERED: ONDANSETRON HCL 4 MG/2 ML VIAL IV ONE (15:15)
[2021-06-10] MEDS ORDERED: MORPHINE SULFATE 4 MG/ML SYR/VIAL IV ONE (15:15)
[2021-06-10] MEDS ORDERED: SODIUM CHLORIDE 0.9% 1,000 ML IV SCH (15:30)
[2021-06-10] MEDS ORDERED: ACETAMINOPHEN 325 MG TAB PO PRN (15:30)
[2021-06-10] MEDS ORDERED: DOCUSATE SOD 100 MG CAP PO PRN (15:30)
[2021-06-10] MEDS ORDERED: MORPHINE SULFATE INJECTION 2 MG/ML SYRG IV PRN (15:30)
[2021-06-10] MEDS ORDERED: NITROGLYCERIN 0.4 MG SL TAB SL PRN (15:30)
[2021-06-10] MEDS ORDERED: ONDANSETRON HCL 4 MG/2 ML VIAL IV PRN ×2 (15:30→16:45)
[2021-06-10] MEDS ORDERED: TEMAZEPAM 15 MG CAP PO PRN (15:30)
[2021-06-10] MEDS: MORPHINE SULFATE 4 MG/ML SYR/VIAL IV PRN ×2 (16:20→22:10)
[2021-06-10] MEDS: SODIUM CHLORIDE 0.9% 1,000 ML IV SCH ×2 (17:07→22:16)
[2021-06-10] MEDS: SUCRALFATE 1 GM/10 ML ORAL SUSP PO SCH ×2 (17:20→21:58)
[2021-06-10] MEDS: HYDROcodone-ACET 5/325MG TAB PO PRN (20:25)
[2021-06-10] MEDS: PANTOPRAZOLE 40 MG TAB PO SCH (21:58)
[2021-06-10] MEDS: ASCORBIC ACID 500 MG TAB PO SCH (22:11)
[2021-06-10 22:23] VITALS: BP 127/80
[2021-06-11] MEDS: HYDROcodone-ACET 5/325MG TAB PO PRN ×2 (00:53→06:17)
[2021-06-11 05:00] VITALS: BP 100/62
[2021-06-11 05:17] LABS: Basophils # (auto) 0 10 ^3/uL (0-0.2); Basophils % (auto) 0.7 % (0.0-2.0); Eosinophils # (auto) 0.2 10 ^3/uL (0-0.8); Eosinophils % (auto) 3.8 % (0.0-7.0); Hematocrit 36.7 % (36.0-46.0); Hemoglobin 12.8 g/dL (12.2-16.2); Lymphocytes # (auto) 1.9 10 ^3/uL (0.4-5.4); Lymphocytes % (auto) 29.6 % (10.0-50.0); Mean Corpuscular Hemoglobin 31.6 pg (28.0-32.0); Mean Corpuscular Hgb Conc. 34.8 g/dL (32.0-36.0); Mean Corpuscular Volume 90.6 fL (80.0-100.0); Monocytes # (auto) 0.4 10 ^3/uL (0-1.3); Monocytes % (auto) 6.3 % (0.0-12.0); Neutrophils # (auto) 3.8 10 ^3/uL (1.6-8.6); Neutrophils % (auto) 59.6 % (37.0-80.0); Nucleated Red Blood Cells % 0.1 %; Red Blood Cells 4.05 10^6/uL (4.0-5.20); Red Cell Distribution Width 13.9 % (11.8-14.3); White Blood Cell 6.3 10^3/uL (4.4-10.8)
[2021-06-11 05:42] LABS: Albumin 3.3 g/dL (3.4-5.0); Calcium 8.7 mg/dL (8.5-10.1); Potassium 3.8 mmol/L (3.5-5.1)
[2021-06-11 05:44] LABS: BUN/Creatinine Ratio 23.1
[2021-06-11 05:46] LABS: Bilirubin, Total 0.5 mg/dL (0.2-1.0); Total Protein 6.3 g/dL (6.4-8.2)
[2021-06-11] MEDS: SUCRALFATE 1 GM/10 ML ORAL SUSP PO SCH ×2 (06:16→11:30)
[2021-06-11 08:00] VITALS: BP 124/81
[2021-06-11] MEDS ORDERED: ZINC SULFATE 220mg CAP or TAB PO SCH (10:00)
[2021-06-11] MEDS: ASCORBIC ACID 500 MG TAB PO SCH (10:00)
[2021-06-11] MEDS ORDERED: LIDOCAINE 5% TOPICAL PATCH TOP SCH (10:00)
[2021-06-11] MEDS: PANTOPRAZOLE 40 MG TAB PO SCH (10:00)
[2021-06-11] MEDS ORDERED: MULTIPLE VITAMIN TAB PO SCH (10:00)
[2021-06-11 12:00] VITALS: BP 122/77
[2021-06-11] MEDS: SODIUM CHLORIDE 0.9% 1,000 ML IV SCH (12:45)
[2021-06-11] MEDS: MORPHINE SULFATE 4 MG/ML SYR/VIAL IV PRN (14:28)
[2021-06-11 16:00] VITALS: BP 118/85
[2021-06-11] MEDS ORDERED: clonazePAM 0.5 MG TAB PO ONE (16:15)
[2021-06-11] MEDS ORDERED: clonazePAM 0.5 MG TAB PO SCH (22:00)
== END 2021-06-11 17:43 | disposition left against medical advice (07) | DRG 251 ==
LOC: ER 12:36 → TELE 15:27 → TELE-CENTR 21:40
PROVIDERS: ADMIT Internal Medicine; ATTEND Internal Medicine
DX: R10.9 Unspecified abdominal pain (principal); F12.90 Cannabis use, unspecified, uncomplicated; M79.18 Myalgia, other site; F17.210 Nicotine dependence, cigarettes, uncomplicated; I10 Essential (primary) hypertension; J44.9 Chronic obstructive pulmonary disease, unspecified; K21.9 Gastro-esophageal reflux disease without esophagitis; R11.2 Nausea with vomiting, unspecified; I25.10 Atherosclerotic heart disease of native coronary artery without angina pectoris; K44.9 Diaphragmatic hernia without obstruction or gangrene; Z53.29 Procedure and treatment not carried out because of patient's decision for other reasons; F41.9 Anxiety disorder, unspecified; Z20.822 Contact with and (suspected) exposure to COVID-19; M81.0 Age-related osteoporosis without current pathological fracture; Z80.6 Family history of leukemia; Z82.49 Family history of ischemic heart disease and other diseases of the circulatory system; Z83.3 Family history of diabetes mellitus; Z85.038 Personal history of other malignant neoplasm of large intestine; Z90.49 Acquired absence of other specified parts of digestive tract; Z98.51 Tubal ligation status
CPT/HCPCS: 36415; 74176; 80053; 81001; 82150; 83690; 85025; 93005; 96361; 96374; 96375; G0378; J2405

== ENCOUNTER 2021-08-10 14:34 | Emergency (ER) | payer MEDICAID ==
[~2021-08-10] VITALS: Ht 160 cm; Wt 77.1 kg
[2021-08-10 14:38] VITALS: BP 96/62
[2021-08-10 17:05] LABS: INR 0.93 (0.9-1.15); Partial Thromboplastin Time 26.6 sec (23.6-33.0)
[2021-08-10 17:07] LABS: Albumin 3.7 g/dL (3.4-5.0); Anion Gap 8 (5-15); BUN/Creatinine Ratio 18.6; Blood Urea Nitrogen 26 mg/dL (7-18); Calcium 8.9 mg/dL (8.5-10.1); Carbon Dioxide 26 mmol/L (21-32); Chloride 106 mmol/L (98-107); GFR African American 49 mL/min; GFR Non-African American 40 mL/min; Glucose 96 mg/dL (74-106); Lipase 170 U/L (73-393); Magnesium 2.5 mg/dL (1.6-2.6); Potassium 3.5 mmol/L (3.5-5.1); Sodium 140 mmol/L (136-145)
[2021-08-10 17:13] LABS: Alanine Aminotransferase 24 U/L (13-56); Alkaline Phosphatase 117 U/L (45-117); Aspartate Aminotransferase 16 U/L (15-37); Bilirubin, Direct < 0.1 mg/dL (0-0.2); Bilirubin, Total 0.2 mg/dL (0.2-1.0); Total Protein 7.2 g/dL (6.4-8.2)
[2021-08-10] MEDS ORDERED: IOHEXOL 300 MG/ML 100ML BOTTLE IJ ONE ×2 (17:23→21:34)
[2021-08-10] MEDS ORDERED: LACTATED RINGER'S 1,000 ML IV ONE (17:30)
[2021-08-10 17:58] LABS: Basophils # (auto) 0.1 10 ^3/uL (0-0.2); Basophils % (auto) 0.6 % (0.0-2.0); Eosinophils # (auto) 0.4 10 ^3/uL (0-0.8); Eosinophils % (auto) 3.4 % (0.0-7.0); Hematocrit 41.8 % (36.0-46.0); Hemoglobin 14.5 g/dL (12.2-16.2); Lymphocytes # (auto) 2.5 10 ^3/uL (0.4-5.4); Lymphocytes % (auto) 22.3 % (10.0-50.0); Mean Corpuscular Hemoglobin 31.8 pg (28.0-32.0); Mean Corpuscular Hgb Conc. 34.7 g/dL (32.0-36.0); Mean Corpuscular Volume 91.7 fL (80.0-100.0); Monocytes # (auto) 0.7 10 ^3/uL (0-1.3); Monocytes % (auto) 6.5 % (0.0-12.0); Neutrophils # (auto) 7.7 10 ^3/uL (1.6-8.6); Neutrophils % (auto) 67.2 % (37.0-80.0); Nucleated Red Blood Cells % 0.1 %; Red Blood Cells 4.56 10^6/uL (4.0-5.20); Red Cell Distribution Width 13.1 % (11.8-14.3); White Blood Cell 11.4 10^3/uL (4.4-10.8)
[2021-08-10] MEDS ORDERED: ACETAMINOPHEN 500 MG TAB PO ONE (21:30)
[2021-08-10] MEDS ORDERED: OMNIPAQUE ORAL SOLN 500ml 12mg/ml PO ONE (21:33)
[2021-08-11] MEDS ORDERED: ACET-1156 PO (00:50)
[2021-08-11] MEDS ORDERED: DICY10CA PO (00:50)
[2021-08-11] MEDS ORDERED: MORPHINE SULFATE 4 MG/ML SYR/VIAL IV ONE (01:00)
== END 2021-08-11 02:09 | disposition home or self-care (01) ==
LOC: ER 14:34
DX: R10.84 Generalized abdominal pain (principal); J44.9 Chronic obstructive pulmonary disease, unspecified; R42 Dizziness and giddiness; I10 Essential (primary) hypertension; F17.210 Nicotine dependence, cigarettes, uncomplicated; F12.10 Cannabis abuse, uncomplicated; Z98.51 Tubal ligation status
CPT/HCPCS: 36415; 74177; 80048; 80076; 83605; 83690; 83735; 84484; 85025; 85610; 85730; 93005; 96360; 96361; 99285; Q9967

== ENCOUNTER 2022-05-17 18:47 | Inpatient (IN) | payer MEDICAID ==
[~2022-05-17] VITALS: Ht 167.6 cm; Wt 78.6 kg
[~2022-05-17 18:47] MED LIST changes: +ACET-1156 PO; +DICY10CA PO
[2022-05-17] MEDS ORDERED: LORazepam 2MG/ML-1ML VIAL IV ONE (19:45)
[2022-05-17 20:04] LABS: Basophils # (auto) 0.1 10 ^3/uL (0-0.2); Basophils % (auto) 0.6 % (0.0-2.0); Eosinophils # (auto) 0.1 10 ^3/uL (0-0.8); Eosinophils % (auto) 0.9 % (0.0-7.0); Hematocrit 39.5 % (36.0-46.0); Hemoglobin 13.4 g/dL (12.2-16.2); Lymphocytes # (auto) 2.4 10 ^3/uL (0.4-5.4); Lymphocytes % (auto) 20.3 % (10.0-50.0); Mean Corpuscular Hemoglobin 30.4 pg (28.0-32.0); Mean Corpuscular Volume 89.4 fL (80.0-100.0); Monocytes # (auto) 1.3 10 ^3/uL (0-1.3); Monocytes % (auto) 10.6 % (0.0-12.0); Neutrophils # (auto) 8.1 10 ^3/uL (1.6-8.6); Neutrophils % (auto) 67.6 % (37.0-80.0); Nucleated Red Blood Cells % 0.2 %; Red Blood Cells 4.42 10^6/uL (4.0-5.20); Red Cell Distribution Width 13.8 % (11.8-14.3)
[2022-05-17 20:52] LABS: Albumin 4.1 g/dL (3.4-5.0); Calcium 8.8 mg/dL (8.5-10.1); Potassium 4.1 mmol/L (3.5-5.1)
[2022-05-17 20:56] LABS: BUN/Creatinine Ratio 16.6; Bilirubin, Total 1.9 mg/dL (0.2-1.0); Total Protein 7.3 g/dL (6.4-8.2)
[2022-05-17] MEDS ORDERED: SODIUM CHLORIDE 0.9% 1,000 ML IV ONE (21:30)
[2022-05-17] MEDS ORDERED: NITROGLYCERIN 0.4 MG SL TAB SL PRN (23:30)
[2022-05-17] MEDS ORDERED: TEMAZEPAM 15 MG CAP PO PRN (23:30)
[2022-05-17] MEDS ORDERED: ONDANSETRON HCL 4 MG/2 ML VIAL IV PRN (23:30)
[2022-05-17] MEDS ORDERED: ACETAMINOPHEN 325 MG TAB PO PRN (23:30)
[2022-05-17] MEDS ORDERED: MORPHINE SULFATE INJ 2 MG/ml SYRG IV PRN (23:30)
[2022-05-18] MEDS: SODIUM CHLORIDE 0.9% 1,000 ML IV SCH ×2 (03:15→07:06)
[2022-05-18 05:40] LABS: Basophils # (auto) 0 10 ^3/uL (0-0.2); Basophils % (auto) 0.4 % (0.0-2.0); Eosinophils # (auto) 0 10 ^3/uL (0-0.8); Eosinophils % (auto) 0.2 % (0.0-7.0); Hematocrit 33.7 % (36.0-46.0); Hemoglobin 11.7 g/dL (12.2-16.2); Lymphocytes # (auto) 1.1 10 ^3/uL (0.4-5.4); Lymphocytes % (auto) 12.4 % (10.0-50.0); Mean Corpuscular Hemoglobin 31.3 pg (28.0-32.0); Mean Corpuscular Hgb Conc. 34.7 g/dL (32.0-36.0); Mean Corpuscular Volume 90.1 fL (80.0-100.0); Monocytes # (auto) 0.8 10 ^3/uL (0-1.3); Neutrophils # (auto) 7.2 10 ^3/uL (1.6-8.6); Nucleated Red Blood Cells % 0.1 %; Red Blood Cells 3.74 10^6/uL (4.0-5.20); Red Cell Distribution Width 13.7 % (11.8-14.3); White Blood Cell 9.2 10^3/uL (4.4-10.8)
[2022-05-18 06:00] LABS: Albumin 3.2 g/dL (3.4-5.0); BUN/Creatinine Ratio 17.8; Potassium 3.5 mmol/L (3.5-5.1)
[2022-05-18 06:09] LABS: Bilirubin, Total 1.1 mg/dL (0.2-1.0); Total Protein 5.9 g/dL (6.4-8.2)
[2022-05-18 07:42] LABS: Alcohol, Urine < 3.0 mg/dL (0-10); Cannabinoid Screen, Urine POSITIVE (NEGATIVE); Opiate Scree,Urine POSITIVE (NEGATIVE); Phencyclidine Screen, Urine NEGATIVE (NEGATIVE)
[2022-05-18 07:50] LABS: Amphetamine Screen, Urine NEGATIVE (NEGATIVE); Barbiturate Scree,Urine NEGATIVE (NEGATIVE); Benzodiazephine Screen, Urine NEGATIVE (NEGATIVE); Cocaine Screen, Urine NEGATIVE (NEGATIVE)
[2022-05-18 07:52] LABS: Urine Bacteria NONE SEEN /hpf (None Seen); Urine Blood 2+ /uL (Negative); Urine Hyaline Cast FEW /lpf (0 - 2); Urine Specific Gravity 1.015 (1.001-1.035); Urine WBC 100 /hpf (0 - 5)
[2022-05-18] MEDS: SODIUM BICARBONATE 50ML VIAL 75 ML in SOD CHL 0.45% 1,000 ML IV SCH ×2 (12:00→23:23)
[2022-05-18] MEDS: PANTOPRAZOLE 40 MG TAB PO SCH (13:05)
[2022-05-18] MEDS: cefTRIAXone 1GM/50ML D5W 50 ML IV SCH (13:40)
[2022-05-18 17:19] VITALS: BP 110/67
[2022-05-18 17:49] VITALS: BP_SYST 106; BP_SYST 110; BP_DIAS 56; BP_DIAS 67
[2022-05-18] MEDS ORDERED: HYDR-4072 PO (18:08)
[2022-05-18] MEDS ORDERED: HYDR-3682 PO (18:08)
[2022-05-18] MEDS ORDERED: BACL10TA PO (18:08)
[2022-05-18] MEDS ORDERED: FAMO40TA7 PO (18:08)
[2022-05-18] MEDS ORDERED: GABA300C10 PO (18:08)
[2022-05-18 20:00] VITALS: BP 106/56
[2022-05-18] MEDS: MORPHINE SULFATE INJ 2 MG/ml SYRG IV PRN (21:01)
[2022-05-18 21:56] VITALS: BP 91/76
[2022-05-18] MEDS: HEPARIN SODIUM (PORCINE) 5000 UNITS/ML 1ML VIAL SC SCH (22:48)
[2022-05-19] MEDS: HYDROcodone-ACET 5/325MG TAB PO PRN ×2 (01:54→05:50)
[2022-05-19 05:22] VITALS: BP 106/64
[2022-05-19] MEDS: SODIUM BICARBONATE 50ML VIAL 75 ML in SOD CHL 0.45% 1,000 ML IV SCH (07:00)
[2022-05-19 09:00] VITALS: BP 112/64
[2022-05-19] MEDS: PANTOPRAZOLE 40 MG TAB PO SCH (10:13)
[2022-05-19] MEDS: cefTRIAXone 1GM/50ML D5W 50 ML IV SCH (10:13)
[2022-05-19] MEDS: HEPARIN SODIUM (PORCINE) 5000 UNITS/ML 1ML VIAL SC SCH ×2 (10:27→21:59)
[2022-05-19] MEDS ORDERED: ALBUTEROL SULF 2.5 MG/0.5ML(0.5%) NEB SOLN NEB PRN (11:30)
[2022-05-19 12:57] LABS: BUN/Creatinine Ratio 33.9; Calcium 8.7 mg/dL (8.5-10.1); Potassium 3.4 mmol/L (3.5-5.1)
[2022-05-19 13:00] VITALS: BP 114/69
[2022-05-19] MEDS: MORPHINE SULFATE INJ 2 MG/ml SYRG IV PRN ×2 (15:18→20:23)
[2022-05-19 15:48] VITALS: BP 114/69
[2022-05-19 17:00] VITALS: BP 127/65
[2022-05-19] MEDS: SOD CHL 0.45% 1,000 ML IV SCH (17:50)
[2022-05-19 22:00] VITALS: BP 128/72
[2022-05-20] MEDS: MORPHINE SULFATE INJ 2 MG/ml SYRG IV PRN ×3 (02:40→09:27)
[2022-05-20 05:00] VITALS: BP 151/74
[2022-05-20 05:31] LABS: Creatinine, Urine 118.2738 mg/dL (30.0-125.0)
[2022-05-20 05:32] LABS: Protein, Urine 30.56 mg/dL (0.0-11.9)
[2022-05-20] MEDS: SUCRALFATE 1 GM/10 ML ORAL SUSP PO SCH ×2 (06:05→11:30)
[2022-05-20 08:00] VITALS: BP 162/71
[2022-05-20] MEDS ORDERED: hydrALAZINE HCL 20 MG/ML VL IV PRN (08:30)
[2022-05-20] MEDS: cefTRIAXone 1GM/50ML D5W 50 ML IV SCH (09:07)
[2022-05-20] MEDS: HEPARIN SODIUM (PORCINE) 5000 UNITS/ML 1ML VIAL SC SCH (09:09)
[2022-05-20] MEDS: HYDROcodone-ACET 5/325MG TAB PO PRN (09:19)
[2022-05-20] MEDS: PANTOPRAZOLE 40 MG TAB PO SCH (09:20)
[2022-05-20] MEDS ORDERED: PANTOPRAZOLE 40 MG TAB PO SCH (10:00)
[2022-05-20] MEDS ORDERED: PANT40T PO (10:53)
[2022-05-20] MEDS ORDERED: BACDST PO (10:53)
[2022-05-20] MEDS ORDERED: SUCR1SUS10 PO (10:53)
[2022-05-20 11:39] VITALS: BP 148/64
[2022-05-20] MEDS: SOD CHL 0.45% 1,000 ML IV SCH (12:00)
== END 2022-05-20 12:58 | disposition home or self-care (01) | DRG 422 ==
LOC: EDUNIT# 18:47 → ER 18:47 → EDBD 18:47 → TELE 23:29 → TELE-WESTW 05-18 17:10
PROVIDERS: ADMIT Internal Medicine; ATTEND Internal Medicine
DX: E86.0 Dehydration (principal); E86.1 Hypovolemia; N17.0 Acute kidney failure with tubular necrosis; E87.20 Acidosis, unspecified; R13.10 Dysphagia, unspecified; K44.9 Diaphragmatic hernia without obstruction or gangrene; I10 Essential (primary) hypertension; E66.9 Obesity, unspecified; Z68.28 Body mass index [BMI] 28.0-28.9, adult; E78.00 Pure hypercholesterolemia, unspecified; J44.9 Chronic obstructive pulmonary disease, unspecified; E11.9 Type 2 diabetes mellitus without complications; F20.9 Schizophrenia, unspecified; F17.210 Nicotine dependence, cigarettes, uncomplicated; Z20.822 Contact with and (suspected) exposure to COVID-19; F41.0 Panic disorder [episodic paroxysmal anxiety]; I25.10 Atherosclerotic heart disease of native coronary artery without angina pectoris; N30.00 Acute cystitis without hematuria; Z80.0 Family history of malignant neoplasm of digestive organs; Z80.6 Family history of leukemia; Z82.49 Family history of ischemic heart disease and other diseases of the circulatory system; Z85.038 Personal history of other malignant neoplasm of large intestine; Z83.3 Family history of diabetes mellitus; Z90.49 Acquired absence of other specified parts of digestive tract
CPT/HCPCS: 36415; 74176; 80048; 80053; 80307; 81001; 82570; 84156; 84300; 85025; 87426; G0378; J0696; J2405

== ENCOUNTER 2023-10-15 14:56 | Inpatient (IN) | payer MEDICAID ==
[~2023-10-15] VITALS: Ht 152.4 cm; Wt 67.3 kg
[~2023-10-15 14:56] MED LIST changes: -ACET-1156 PO; +ACET-1881 PO; +BACDST PO; +BACL10TA PO; +FAMO40TA7 PO; +GABA-1250 PO; +HYDR-3682 PO; +HYDR-4072 PO; +PANT40T PO; +SUCR1SUS26 PO
[2023-10-15 16:20] LABS: Basophils # (auto) 0 10 ^3/uL (0-0.2); Basophils % (auto) 0.5 % (0.0-2.0); Eosinophils # (auto) 0.1 10 ^3/uL (0-0.8); Eosinophils % (auto) 0.5 % (0.0-7.0); Hematocrit 39.7 % (36.0-46.0); Hemoglobin 13.7 g/dL (12.2-16.2); Lymphocytes # (auto) 1.6 10 ^3/uL (0.4-5.4); Lymphocytes % (auto) 15.4 % (10.0-50.0); Mean Corpuscular Hemoglobin 31.2 pg (28.0-32.0); Mean Corpuscular Hgb Conc. 34.4 g/dL (32.0-36.0); Mean Corpuscular Volume 90.6 fL (80.0-100.0); Monocytes # (auto) 0.7 10 ^3/uL (0-1.3); Monocytes % (auto) 7.1 % (0.0-12.0); Neutrophils # (auto) 8.1 10 ^3/uL (1.6-8.6); Neutrophils % (auto) 76.5 % (37.0-80.0); Nucleated Red Blood Cells % 0.2 %; Red Blood Cells 4.38 10^6/uL (4.0-5.20); Red Cell Distribution Width 13.8 % (11.8-14.3); White Blood Cell 10.6 10^3/uL (4.4-10.8)
[2023-10-15 16:45] LABS: Alanine Aminotransferase 12 U/L (7-40); Albumin 4.4 g/dL (3.2-4.8); Alkaline Phosphatase 101 U/L (46-116); Anion Gap 8 (5-15); Aspartate Aminotransferase 17 U/L (13-40); BUN/Creatinine Ratio 14.4 (10.0-20.0); Bilirubin, Total 0.7 mg/dL (0.2-1.0); Blood Urea Nitrogen 33 mg/dL (9-23); Carbon Dioxide 24 mmol/L (20-30); Chloride 110 mmol/L (98-107); Potassium 3.8 mmol/L (3.5-5.1); Sodium 142 mmol/L (136-145); Total Protein 6.8 g/dL (5.7-8.2)
[2023-10-15 16:58] LABS: Glucose 103 mg/dL (74-106)
[2023-10-15 17:00] LABS: Lactic Acid w/Reflex 3.3 mmol/L (0.4-2.0)
[2023-10-15 17:13] LABS: Lipase 29 U/L (12-53)
[2023-10-15] MEDS: SODIUM CHLORIDE 0.9% 1,000 ML IVB ONE (19:31)
[2023-10-15] MEDS: MORPHINE SULFATE 4 MG/ML SYR/VIAL IV ONE (19:31)
[2023-10-15] MEDS: ONDANSETRON HCL 4 MG/2 ML VIAL IV ONE (19:31)
[2023-10-15 21:53] LABS: Lactic Acid w/Reflex 2.2 mmol/L (0.4-2.0)
[2023-10-15] MEDS ORDERED: HYDROcodone-ACET 5/325MG TAB PO PRN (22:30)
[2023-10-15] MEDS ORDERED: DOCUSATE SOD 100 MG CAP PO PRN (22:30)
[2023-10-15] MEDS ORDERED: ONDANSETRON HCL 4 MG/2 ML VIAL IV PRN (22:30)
[2023-10-15] MEDS ORDERED: ACETAMINOPHEN 325 MG TAB PO PRN (22:30)
[2023-10-15] MEDS: SODIUM CHLORIDE 0.9% 1,000 ML IV SCH (23:16)
[2023-10-15] MEDS ORDERED: NITROGLYCERIN 0.4 MG SL TAB SL PRN (23:45)
[2023-10-16] MEDS: LORazepam 2MG/ML-1ML VIAL ONE (01:51)
[2023-10-16] MEDS: HALOPERIDOL LACTATE 5 MG/ML INJ VIAL ONE (01:51)
[2023-10-16] MEDS: LORazepam 2MG/ML-1ML VIAL IV ONE (02:01)
[2023-10-16] MEDS: HALOPERIDOL LACTATE 5 MG/ML INJ VIAL IM ONE (02:01)
[2023-10-16] MEDS ORDERED: MORPHINE SULFATE INJ 2 MG/ml SYRG IV PRN (04:00)
[2023-10-16] MEDS ORDERED: NITROGLYCERIN 0.4 MG SL TAB SL PRN (04:00)
[2023-10-16 06:54] LABS: Basophils # (auto) 0 10 ^3/uL (0-0.2); Basophils % (auto) 0.3 % (0.0-2.0); Eosinophils # (auto) 0.1 10 ^3/uL (0-0.8); Eosinophils % (auto) 0.7 % (0.0-7.0); Hematocrit 33.9 % (36.0-46.0); Hemoglobin 11.6 g/dL (12.2-16.2); Lymphocytes # (auto) 1.3 10 ^3/uL (0.4-5.4); Mean Corpuscular Hemoglobin 31.6 pg (28.0-32.0); Mean Corpuscular Hgb Conc. 34.2 g/dL (32.0-36.0); Mean Corpuscular Volume 92.2 fL (80.0-100.0); Monocytes # (auto) 0.8 10 ^3/uL (0-1.3); Monocytes % (auto) 9.2 % (0.0-12.0); Neutrophils # (auto) 6.6 10 ^3/uL (1.6-8.6); Neutrophils % (auto) 74.8 % (37.0-80.0); Nucleated Red Blood Cells % 0.1 %; Red Blood Cells 3.68 10^6/uL (4.0-5.20); White Blood Cell 8.8 10^3/uL (4.4-10.8)
[2023-10-16 07:00] LABS: Alanine Aminotransferase 13 U/L (7-40); Albumin 3.5 g/dL (3.2-4.8); Alkaline Phosphatase 80 U/L (46-116); Anion Gap 6 (5-15); Aspartate Aminotransferase 31 U/L (13-40); BUN/Creatinine Ratio 11.5 (10.0-20.0); Bilirubin, Total 0.5 mg/dL (0.2-1.0); Blood Urea Nitrogen 29 mg/dL (9-23); Calcium 8.6 mg/dL (8.7-10.4); Carbon Dioxide 22 mmol/L (20-30); Chloride 117 mmol/L (98-107); Glucose 86 mg/dL (74-106); Potassium 3.6 mmol/L (3.5-5.1); Sodium 145 mmol/L (136-145); Total Protein 5.5 g/dL (5.7-8.2)
[2023-10-16 07:40] VITALS: PULSE 60; RESP 14; O2SAT 97
[2023-10-16 11:09] LABS: Urine Bacteria FEW /hpf (None Seen); Urine Blood Negative /uL (Negative); Urine Clarity Clear (Clear); Urine Color Yellow (Yellow); Urine Hyaline Cast MANY /lpf (0 - 2); Urine Protein, UAD 1+ (Negative); Urine Specific Gravity 1.021 (1.001-1.035); Urine Urobilinogen 2 mg/dL (Negative); Urine WBC 2 /hpf (0 - 5); Urine pH 5.5 (5.0-9.0)
[2023-10-16 13:52] LABS: INR 0.92 (0.9-1.15); Partial Thromboplastin Time 23.1 SEC (24.5-34.5); Prothrombin Time 9.8 sec (9.3-11.8)
[2023-10-16 14:02] LABS: Amphetamine Screen, Urine Neg (NEGATIVE); Barbiturate Scree,Urine Neg (NEGATIVE); Benzodiazephine Screen, Urine Neg (NEGATIVE); Cannabinoid Screen, Urine Pos (NEGATIVE); Cocaine Screen, Urine Neg (NEGATIVE); Opiate Scree,Urine Pos (NEGATIVE); Phencyclidine Screen, Urine Neg (NEGATIVE)
[2023-10-16 14:22] LABS: Magnesium 2.7 mg/dL (1.6-2.6)
[2023-10-16 14:23] LABS: Phosphorus 4.1 mg/dL (2.4-5.1)
[2023-10-16 18:17] VITALS: BP 150/84; PULSE 78; RESP 20; TEMP 97.9; O2SAT 97
[2023-10-16 20:00] VITALS: PULSE 89; RESP 18; O2SAT 95
[2023-10-16] MEDS: MORPHINE SULFATE INJ 2 MG/ml SYRG IV PRN (22:01)
[2023-10-16 22:08] VITALS: BP 133/73; PULSE 65; RESP 20; TEMP 98.2; O2SAT 97
[2023-10-17] VITALS (9 sets, daily range): BP systolic 124–143; BP diastolic 67–97; PULSE 60–79; RESP 16–19; TEMP 97.6–98.2; O2SAT 96–99
[2023-10-17] MEDS: ERGOCALCIFEROL 50,000 UNIT(1.25MG) CAP PO SCH (09:43)
[2023-10-17 10:18] LABS: Basophils # (auto) 0 10 ^3/uL (0-0.2); Basophils % (auto) 0.2 % (0.0-2.0); Eosinophils # (auto) 0 10 ^3/uL (0-0.8); Hematocrit 36.5 % (36.0-46.0); Hemoglobin 12.6 g/dL (12.2-16.2); Lymphocytes # (auto) 0.7 10 ^3/uL (0.4-5.4); Lymphocytes % (auto) 6.5 % (10.0-50.0); Mean Corpuscular Hemoglobin 31.4 pg (28.0-32.0); Mean Corpuscular Hgb Conc. 34.5 g/dL (32.0-36.0); Mean Corpuscular Volume 91.2 fL (80.0-100.0); Monocytes # (auto) 0.6 10 ^3/uL (0-1.3); Monocytes % (auto) 5.1 % (0.0-12.0); Neutrophils # (auto) 9.8 10 ^3/uL (1.6-8.6); Neutrophils % (auto) 88.2 % (37.0-80.0); Red Blood Cells 4.01 10^6/uL (4.0-5.20); Red Cell Distribution Width 13.4 % (11.8-14.3); White Blood Cell 11.1 10^3/uL (4.4-10.8)
[2023-10-17 10:32] LABS: Alanine Aminotransferase 24 U/L (7-40); Alkaline Phosphatase 94 U/L (46-116); Anion Gap 6 (5-15); Aspartate Aminotransferase 39 U/L (13-40); BUN/Creatinine Ratio 28.8 (10.0-20.0); Blood Urea Nitrogen 21 mg/dL (9-23); Calcium 9.5 mg/dL (8.7-10.4); Carbon Dioxide 24 mmol/L (20-30); Chloride 114 mmol/L (98-107); Creatine Kinase IFCC 644 U/L (34-145); Glucose 114 mg/dL (74-106); Magnesium 2.2 mg/dL (1.6-2.6); Potassium 3.3 mmol/L (3.5-5.1); Sodium 144 mmol/L (136-145)
[2023-10-17 10:33] LABS: Bilirubin, Total 0.7 mg/dL (0.2-1.0); Phosphorus 2.4 mg/dL (2.4-5.1); Total Protein 6.1 g/dL (5.7-8.2)
[2023-10-17] MEDS ORDERED: SODIUM CHLORIDE 0.9% 1,000 ML IV SCH (11:30)
[2023-10-17] MEDS: SUCRALFATE 1 GM/10 ML ORAL SUSP PO SCH (12:10)
[2023-10-17] MEDS: cefTRIAXone 1GM/50ML D5W 50 ML IV ONE (12:10)
[2023-10-17] MEDS: POTASSIUM CHL 20 Meq TABLET PO ONE (12:10)
[2023-10-17] MEDS: amLODIPine BESYLATE 5 MG TAB PO SCH (12:11)
[2023-10-17] MEDS ORDERED: ALBUTEROL SULF 2.5 MG/0.5ML(0.5%) NEB SOLN NEB PRN (12:45)
[2023-10-17] MEDS ORDERED: GADOTERATE MEG 10 MMOL/20ml INJ (0.5MMOL/ml) IV ONE (18:57)
[2023-10-17] MEDS ORDERED: PATIENTS OWN MEDICATION (Clonazepam 1 TAB) PO SCH (22:00)
[2023-10-17] MEDS ORDERED: clonazePAM 0.5 MG TAB PO SCH (22:00)
[2023-10-17] MEDS: GABAPENTIN 300 MG CAP PO SCH (22:06)
[2023-10-17] MEDS: clonazePAM 0.5 MG TAB PO SCH (22:06)
[2023-10-18 01:00] VITALS: BP 143/80; PULSE 75; RESP 18; TEMP 97.2; O2SAT 98
[2023-10-18 05:00] VITALS: BP 156/90; PULSE 85; RESP 16; TEMP 98.2; O2SAT 99
[2023-10-18 06:57] LABS: Basophils # (auto) 0 10 ^3/uL (0-0.2); Basophils % (auto) 0.2 % (0.0-2.0); Eosinophils # (auto) 0 10 ^3/uL (0-0.8); Eosinophils % (auto) 0.2 % (0.0-7.0); Hematocrit 40.6 % (36.0-46.0); Hemoglobin 14.1 g/dL (12.2-16.2); Lymphocytes # (auto) 1.3 10 ^3/uL (0.4-5.4); Lymphocytes % (auto) 9.5 % (10.0-50.0); Mean Corpuscular Hemoglobin 31.2 pg (28.0-32.0); Mean Corpuscular Hgb Conc. 34.7 g/dL (32.0-36.0); Monocytes # (auto) 0.9 10 ^3/uL (0-1.3); Monocytes % (auto) 6.4 % (0.0-12.0); Neutrophils # (auto) 11.6 10 ^3/uL (1.6-8.6); Neutrophils % (auto) 83.7 % (37.0-80.0); Red Blood Cells 4.51 10^6/uL (4.0-5.20); White Blood Cell 13.8 10^3/uL (4.4-10.8)
[2023-10-18 07:05] VITALS: O2SAT 97
[2023-10-18 07:14] LABS: Chloride 113 mmol/L (98-107); Potassium 3.1 mmol/L (3.5-5.1); Sodium 144 mmol/L (136-145)
[2023-10-18 07:15] LABS: Anion Gap 9 (5-15); Calcium 9.8 mg/dL (8.7-10.4); Carbon Dioxide 22 mmol/L (20-30)
[2023-10-18 07:20] LABS: Blood Urea Nitrogen 16 mg/dL (9-23); Glucose 93 mg/dL (74-106)
[2023-10-18 08:00] VITALS: PULSE 101; PULSE 70; RESP 16; O2SAT 96
[2023-10-18 09:00] VITALS: BP 125/85; PULSE 86; RESP 20; TEMP 98.7; O2SAT 98
[2023-10-18] MEDS ORDERED: POTASSIUM CHL 20MEQ/100ML 100 ML IV SCH (09:00)
[2023-10-18] MEDS ORDERED: CEPH500C PO (09:37)
[2023-10-18] MEDS ORDERED: AML5T PO (09:37)
[2023-10-18] MEDS ORDERED: FAMOTIDINE 20 MG TAB PO SCH (10:00)
[2023-10-18] MEDS ORDERED: PATIENTS OWN MEDICATION (Famotidine 1 TAB) PO SCH (10:00)
[2023-10-18] MEDS: FAMOTIDINE 20 MG TAB PO SCH (10:23)
[2023-10-18] MEDS: POTASSIUM EFFERVESENT TAB 25 MEQ PO ONE (10:25)
[2023-10-18 11:24] VITALS: BP 125/87; PULSE 85; RESP 16; TEMP 98; O2SAT 97
== END 2023-10-18 12:23 | disposition home or self-care (01) | DRG 469 ==
LOC: EDBD 14:56 → EDUNIT# 14:56 → ER 14:56 → UNDOADMIN 23:42 → TELE 23:42 → TELE-WESTW 10-16 18:00
PROVIDERS: ADMIT Nurse Practitioner Family; ATTEND Nurse Practitioner
DX: N17.0 Acute kidney failure with tubular necrosis (principal); E87.20 Acidosis, unspecified; R11.2 Nausea with vomiting, unspecified; F20.9 Schizophrenia, unspecified; I10 Essential (primary) hypertension; J44.89 Other specified chronic obstructive pulmonary disease; R29.6 Repeated falls; F17.210 Nicotine dependence, cigarettes, uncomplicated; F12.90 Cannabis use, unspecified, uncomplicated; Z90.49 Acquired absence of other specified parts of digestive tract; Z80.6 Family history of leukemia; Z79.899 Other long term (current) drug therapy
CPT/HCPCS: 36415; 70450; 70553; 72157; 74176; 76775; 80048; 80053; 80061; 80307; 81001; 82140; 82306; 82550; 82565; 82607; 83036; 83605; 83690; 83735; 83930; 84100; 84443; 84520; 85025; 85610; 85730; 97110; 97116; 97163; 97530; G0378; J2405